=== PATIENT | female | born 1965 | race Caucasian/White ===

== ENCOUNTER 2023-01-04 23:41 | Observation (INO) | payer OTHER, SELFPAY ==
[2023-01-04 23:45] VITALS: BP 107/62; PULSE 60; RESP 12; TEMP 36.8; O2SAT 93; BMI 29.6
[2023-01-05] VITALS (36 sets, daily range): BP systolic 84–179; BP diastolic 57–86; PULSE 56–103; RESP 10–26; TEMP 36.6–37.3; O2SAT 88–98; BMI 34.8
--- NOTE | 2023-01-05 00:19 | ED_ITS ---
HPI - Fall General Chief Complaint: Fall Stated Complaint: FALL NECK PAIN Time Seen by Provider: 01/05/23 00:19 Source: patient Mode of arrival: ambulance History of Present Illness HPI Narrative: This 57 year old female history of bipolar disorder who was diagnosed with right breast cancer last week and has not seen oncology yet was brought to the emergency department by EMS after she had several falls. The patient states that she fell twice tonight and struck her head against the door frame. She complains of a generalized headache. She has neck pain and back pain. She states that the police were called to her apartment and told her that you don't look good she stated to them that she didn't feel good either and EMS was called. She denies any chest pain. She has shortness of breath and is notably hypoxic upon arrival. She denies that she smokes. She does not have COPD. She denies that she drinks. She states that her abdomen feels swollen. She has not had a fever. She denies any suicidal or homicidal ideation. Related Data Home Medications Medication Instructions Recorded Confirmed alprazolam 0.25 mg tablet 0.25 mg PO QID PRN anxiety 01/05/23 01/05/23 atorvastatin 20 mg tablet 20 mg PO DAILY 01/05/23 01/05/23 blood sugar diagnostic (Oneuch 01/05/23 01/05/23 Ultra Test strips) celecoxib 200 mg capsule 200 mg PO DAILY 01/05/23 01/05/23 citalopram 10 mg tablet 10 mg PO DAILY 01/05/23 01/05/23 cyanocobalamin (vitamin B-12) 1,000 mcg PO DAILY 01/05/23 01/05/23 1,000 mcg tablet diclofenac sodium 1 % topical gel 2 g topical BID 01/05/23 01/05/23 dulaglutide 4.5 mg/0.5 mL 4.5 mg subcut .tuesday01/05/23 01/05/23 subcutaneous pen injector (Trulicsmith) duloxetine 40 mg capsule,delayed 40 mg PO BID 01/05/23 01/05/23 release empagliflozin 25 mg tablet 25 mg PO DAILY 01/05/23 01/05/23 (Jardiance) flash glucose sensor (FreeStyle 01/05/23 01/05/23 Nanette 2 Sensor kit) gabapentin 600 mg tablet 600 mg PO TID 01/05/23 01/05/23 hydroxyzine pamoate 50 mg capsule 50 mg PO TID PRN anxiety 01/05/23 01/05/23 insulin glargine 100 unit/mL 32 unit subcut QPM 01/05/23 01/05/23 subcutaneous solution (Lantus U-100 Insulin) lamotrigine 100 mg tablet 100 mg PO DAILY 01/05/23 01/05/23 loratadine 10 mg tablet 10 mg PO DAILY 01/05/23 01/05/23 meclizine 25 mg tablet 25 mg PO Q8H PRN dizziness or 01/05/23 01/05/23 vertigo metformin 500 mg tablet,extended 1,000 mg PO BID 01/05/23 01/05/23 release 24 hr metoclopramide HCl 5 mg tablet 5 mg PO BIDWM 01/05/23 01/05/23 midodrine 10 mg tablet 10 mg PO TID 01/05/23 01/05/23 ondansetron 4 mg disintegrating 4 mg PO Q8H PRN nausea and vomiting 01/05/23 01/05/23 tablet pantoprazole 40 mg tablet,delayed 40 mg PO BID 01/05/23 01/05/23 release quetiapine 200 mg tablet 200 mg PO DAILY 01/05/23 01/05/23 quetiapine 25 mg tablet 25 mg PO .hs 01/05/23 01/05/23 trazodone 100 mg tablet 100 mg PO .HS PRN insomnia 01/05/23 01/05/23 Previous Rx's Medication Instructions Recorded levofloxacin 500 mg tablet 500 mg PO DAILY 10 days #10 tabs 01/06/23 prednisone 10 mg tablet 50 mg PO DAILY #47 tabs 01/06/23 Allergies Allergy/AdvReac Type Severity Reaction Status Date / Time lithium Allergy Verified 01/04/23 23:53 metformin Allergy Verified 01/04/23 23:53 ziprasidone [From Geodon] Allergy Verified 01/04/23 23:53 Review of Systems ROS Status of ROS 10 or more systems reviewed and unremarkable except as noted in history and below [facility] Medical History Surgical History (Updated 01/05/23 @ 07:33 by Cookie Ontiveros) Family History (Updated 01/05/23 @ 07:34 by Cookie Ontiveros) Father Family history of CHF (congestive heart failure) Family history of cancer Family history of hypertension Family history of myocardial infarction Family history of stroke Brother Family history of COPD (chronic obstructive pulmonary disease) Family history of hypertension Grandmother Family history of diabetes mellitus Grandfather Family history of diabetes mellitus Mother Family history of hypertension Social History (Updated 01/05/23 @ 07:36 by Cookie Ontiveros) Within the past year, how often did you have a drink containing alcohol: never Score interpretation: A score less than 3 is consistent with normal alcohol consumption. Smoking status: Never smoker Non-prescribed substance use: denies use Previous occupational history: Disability Highest level of school completed/degree received: high school graduate Are you now , , , , never or living with a partner: In a typical week, how many times do you talk on the telephone with family, friends, or neighbors: 3 or more times per week How often do you get together with friends or relatives: 3 or more times per week Little interest or pleasure in doing things: several days Feeling down, depressed, or hopeless: more than half the days Feel stressed/tense/nervous/anxious/difficulty sleeping: to some extent Do you think of yourself as: straight/heterosexual Gender Identity: female Exam Narrative Exam Narrative: Nurses note and vital signs reviewed and patient is Hypoxic, she has a normal blood pressure and pulse, she is afebrile General: Pale alert, nontoxic female, no respiratory distress, GCS 15 Skin: Warm, dry, no pallor noted. There is no rash noted. Head: Normocephalic, atraumatic, No appreciable tenderness, hematoma, abrasion, laceration, no raccoon sign or Kirby sign Eye: Mildy pale conjunctiva Ears, Nose, Mouth, and Throat: oral mucosa is moist. Nares patent. Mouth without vesicles. Cardiovascular: Regular Rate and Rhythm S1 S2, no murmurs rubs or gallops appreciated Respiratory: Patient is in no distress, no accessory muscle use, lungs are clear to auscultation, no wheezing, rales or rhonchi, She was notably hypoxic with pulse ox 88-89 percent on room air Back: non-tender, no Midline bony vertebral tenderness or step-off, no ecchymosis or abrasion noted GI: Normal bowel sounds, Softly distended, no rebound guarding rigidity appr eciated Musculoskeletal: The patient has no evidence of calf tenderness, no pitting edema, symmetrical pulses noted bilaterally Neurological: A&O x4, normal speech Psychiatric: Cooperative Constitutional Vital Signs, click to edit/add: Last Vital Signs Temp 98.2 F 01/06/23 05:57 Pulse 112 H 01/06/23 05:57 Resp 20 01/06/23 05:57 BP 127/66 H 01/06/23 05:57 Pulse Ox 90 L 01/06/23 11:15 O2 Del Method Room Air 01/06/23 11:15 O2 Flow Rate 2 01/05/23 14:37 Course Course Hospital Course: Patient presented to the emergency room with increasing cough, Respiratory distress, tachycardia, hypotension, acute hypoxic respiratory failure, respiratory acidosis with elevated CO2, acute kidney injury, positive lactate secondary to multifocal pneumonia and sepsis with multisystem organ dysfunction- lung and kidneys-sepsis criteria with tachycardia, respiratory distress with a known source of infection and positive lactate.??Patient was treated aggressively with IV antibiotics and aerosol treatments. She was no longer hypoxic the following day. He was able to ambulate well although physical therapy did recommend home health for physical therapy. She does not meet criteria for rehabilitation. With the hypoxia improved in the rapid fashion, patient will be discharged home in improving condition. Medications see list. Follow-up with her PCP within the next week. Vital Signs Vital signs: Vital Signs Temperature 98.2 F 01/04/23 23:45 Pulse Rate 60 01/04/23 23:45 Respiratory Rate 12 01/04/23 23:45 Blood Pressure 107/62 01/04/23 23:45 Pulse Oximetry 93 L 01/04/23 23:45 Oxygen Delivery Method Room Air 01/04/23 23:45 Temperature 98.2 F 01/06/23 05:57 Pulse Rate 112 H 01/06/23 05:57 Respiratory Rate 20 01/06/23 05:57 Blood Pressure 127/66 H 01/06/23 05:57 Pulse Oximetry 90 L 01/06/23 11:15 Oxygen Delivery Method Room Air 01/06/23 11:15 Oxygen Delivery Flow Rate 2 01/05/23 14:37 MDM - Fall MDM Narrative Medical decision making narrative: This 57-year-old female with a history of diabetes, bipolar disorder obesity who is a nonsmoker but was diagnosed with right breast cancer last week and is scheduled to see oncology in the near future is brought to the emergency department by EMS. The patient had several falls while at home earlier today. She states she struck her head twice on a door frame. She presents complaining of a generalized headache, neck pain and shortness of breath. She was notably hypoxic upon arrival. She denies that she has a history of chronic obstructive pulmonary disease or any lung disease. She states that she figured she was having trouble breathing due to the breast cancer. An EKG done upon arrival was A sinus rhythm with An incomplete right bundle-branch block and nonspecific changes. An IV was placed and she was medicated with Tylenol, Zofran and IV fluids. Tea and labs were ordered and she was sent for CT scanning of the head and neck. The CT scans of the head and neck were negative for acute findings. Routine labs are reviewed. She does have an elevated lactic acid at 2.7. She has a normal white count at 6, hemoglobin is normal at 11.7. She has elevated glucose at 356. Potassium is low at 3. BUS is normal at 6 and creatinine is mildly elevated at 1.27. Troponin was normal at 4.9. Her urine is negative for infection. She was placed on supplemental oxygen due to her pulse ox being in the high 80s. She responds appropriately to the supplemental oxygen. I did order a blood gas and she was taken off of the oxygen briefly. Her pH was 7.[address]. [address] scan of the chest shows Cardiomegaly with a trace pericardial effusion with diminished lung volumes with a background mosaic attenuation pattern and mild atelectatic changes. No discrete pulmonary mass or nodule is noted, no overt pneumonia was noted. There was no notable PE. It did show mild enlargement of the liver and spleen. CT scan of the pelvis was unremarkable with findings suggestive of constipation. It also showed some retroperitoneal varices above the level of the aortic bifurcation emanating off of the distal IVC. She was given 20 mEq of supplemental potassium for the hypokalemia. She was placed back onto the oxygen as her pulse ox into the 80s without supplemental oxygen. Her lactic acid was repeated while she was receiving IV fluids and went from 2.7-2.9. There is no clear source of the lactic acidosis however her glucose is 356. She was treated with a dose of IV Rocephin and 125 mg of IV Solu-Medrol. On reevaluation she stated that she needed chicken broth and something for heartburn. She was given a gastrointestinal cocktail with clinical improvement. She will be admitted for further evaluation and treatment. The case was discussed with Dr. Wills and she is accepted for admission to [facility]. Lab Data Labs: Lab Results 01/05/23 01/05/23 01/05/23 Range/Units 00:56 05:00 05:16 WBC 6.0 (4.0-11.0) 10^3/uL RBC 4.14 L (4.20-5.40) 10^6/uL Hgb 11.7 L (12.0-16.0) g/dL Hct 35.1 L (36.0-48.0) % MCV 84.8 (81.0-99.0) fL MCH 28.3 (26.7-34.0) pg MCHC 33.3 (29.9-35.2) g/dL RDW 14.0 (11.0-15.0) % Plt Count 274 (150-450) 10^3/uL MPV 9.3 L (9.5-13.5) fL Neut % (Auto) 54.3 (43.0-75.0) % Lymph % (Auto) 33.8 (20.5-60.0) % [place] % (Auto) 8.6 (1.7-12.0) % Eos % (Auto) 2.3 (0.9-7.0) % Baso % (Auto) 0.5 (0.2-2.0) % Neut # (Auto) 3.3 (1.4-6.5) 10^3/uL Lymph # (Auto) 2.0 (1.2-3.8) 10^3/uL [place] # (Auto) 0.5 (0.3-0.8) 10^3/uL Eos # (Auto) 0.1 (0.0-0.7) 10^3/uL Baso # (Auto) 0.0 (0.0-0.1) 10^3/uL Abs Immat Gran (auto) 0.03 (0.00-0.03) 10^3/uL Imm/Tot Granulo (auto) 0.5 (0.0-0.5) % Puncture Site Rr ABG pH 7.305 L (7.350-7.450) ABG pCO2 50.7 H* (35.0-45.0) mmHg ABG pO2 87.6 (80.0-100.0) mmHg ABG HCO3 25.2 (22.0-26.0) mmol/L ABG O2 Saturation 96.6 % ABG Base Excess -1.1 (-2.0-2.0) mmol/L Darius Test Positive (POSITIVE) O2 Liters/Min 2.5 Sodium 139 (136-145) mmol/L Potassium 3.0 L (3.5-5.1) mmol/L Chloride 101 (98-107) mmol/L Carbon Dioxide 27.7 (21.0-32.0) mmol/L Anion Gap 13.3 BUN 6.0 L (7.0-18.0) mg/dL Creatinine 1.27 H (0.55-1.02) mg/dL Est GFR ( Amer) 53 L (>=60) Est GFR (Non-Af Amer) 44 L (>=60) BUN/Creatinine Ratio 4.7 Glucose 356 H (74-106) mg/dL Lactate 2.7 H* 2.9 H* (0.4-2.0) mmol/L Calcium 8.4 L (8.5-10.1) mg/dL Total Bilirubin 0.4 (0.2-1.0) mg/dL AST 12 L (15-37) U/L ALT 22 (14-59) U/L Alkaline Phosphatase 109 (46-116) U/L Troponin I High Sens 4.1 4.9 (4.0-51.3) pg/mL NT-Pro-B Natriuret Pep 139.0 (<=900.0) pg/mL Total Protein 6.2 L (6.4-8.2) g/dL Albumin 3.1 L (3.4-5.0) g/dL Globulin 3.1 g/dL Albumin/Globulin Ratio 1.0 Lipase 43.0 L (73.0-393.0) U/L Urine Color (YELLOW) Urine Clarity (CLEAR) Urine pH (5.0-9.0) Ur Specific [place] (1.005-1.025) Urine Protein (NEG/TRACE) mg/dL Urine Glucose (UA) (NEGATIVE) mg/dL Urine Ketones (NEGATIVE) mg/dL Urine Occult Blood (NEGATIVE) Urine Nitrite (NEGATIVE) Urine Bilirubin (NEGATIVE) Urine Urobilinogen (0.2-1.0) EU/dL Ur Leukocyte Esterase (NEGATIVE) Urine RBC (0-2) #/HPF Urine WBC (NONE SEEN) #/HPF Ur Squamous Epith Cells (NONE/RARE) #/LPF Urine Crystals (None Seen) #/HPF Urine Bacteria (NONE SEEN) #/HPF Urine Casts (NONE SEEN) #/LPF Urine Mucus (NONE SEEN) Ur Culture Indicated? Blood Type A Positive Antibody Screen Negative 01/05/23 Range/Units 05:30 WBC (4.0-11.0) 10^3/uL RBC (4.20-5.40) 10^6/uL Hgb (12.0-16.0) g/dL Hct (36.0-48.0) % MCV (81.0-99.0) fL MCH (26.7-34.0) pg MCHC (29.9-35.2) g/dL RDW (11.0-15.0) % Plt Count (150-450) 10^3/uL MPV (9.5-13.5) fL Neut % (Auto) (43.0-75.0) % Lymph % (Auto) (20.5-60.0) % [place] % (Auto) (1.7-12.0) % Eos % (Auto) (0.9-7.0) % Baso % (Auto) (0.2-2.0) % Neut # (Auto) (1.4-6.5) 10^3/uL Lymph # (Auto) (1.2-3.8) 10^3/uL [place] # (Auto) (0.3-0.8) 10^3/uL Eos # (Auto) (0.0-0.7) 10^3/uL Baso # (Auto) (0.0-0.1) 10^3/uL Abs Immat Gran (auto) (0.00-0.03) 10^3/uL Imm/Tot Granulo (auto) (0.0-0.5) % Puncture Site ABG pH (7.350-7.450) ABG pCO2 (35.0-45.0) mmHg ABG pO2 (80.0-100.0) mmHg ABG HCO3 (22.0-26.0) mmol/L ABG O2 Saturation % ABG Base Excess (-2.0-2.0) mmol/L Darius Test (POSITIVE) O2 Liters/Min Sodium (136-145) mmol/L Potassium (3.5-5.1) mmol/L Chloride (98-107) mmol/L Carbon Dioxide (21.0-32.0) mmol/L Anion Gap BUN (7.0-18.0) mg/dL Creatinine (0.55-1.02) mg/dL Est GFR ( Amer) (>=60) Est GFR (Non-Af Amer) (>=60) BUN/Creatinine Ratio Glucose (74-106) mg/dL Lactate (0.4-2.0) mmol/L Calcium (8.5-10.1) mg/dL Total Bilirubin (0.2-1.0) mg/dL AST (15-37) U/L ALT (14-59) U/L Alkaline Phosphatase (46-116) U/L Troponin I High Sens (4.0-51.3) pg/mL NT-Pro-B Natriuret Pep (<=900.0) pg/mL Total Protein (6.4-8.2) g/dL Albumin (3.4-5.0) g/dL Globulin g/dL Albumin/Globulin Ratio Lipase (73.0-393.0) U/L Urine Color Lt. yellow (YELLOW) Urine Clarity Clear (CLEAR) Urine pH 6.5 (5.0-9.0) Ur Specific [place] <=1.005 A (1.005-1.025) Urine Protein Negative (NEG/TRACE) mg/dL Urine Glucose (UA) >=1000 A (NEGATIVE) mg/dL Urine Ketones Negative (NEGATIVE) mg/dL Urine Occult Blood Negative (NEGATIVE) Urine Nitrite Negative (NEGATIVE) Urine Bilirubin Negative (NEGATIVE) Urine Urobilinogen 0.2 (0.2-1.0) EU/dL Ur Leukocyte Esterase Negative (NEGATIVE) Urine RBC None seen (0-2) #/HPF Urine WBC None seen (NONE SEEN) #/HPF Ur Squamous Epith Cells Rare (NONE/RARE) #/LPF Urine Crystals None seen (None Seen) #/HPF Urine Bacteria None seen (NONE SEEN) #/HPF Urine Casts None seen (NONE SEEN) #/LPF Urine Mucus None seen (NONE SEEN) Ur Culture Indicated? No Blood Type Antibody Screen ECG Data Attestation: I personally reviewed and interpreted this ECG as follows: (Sinus rhythm at 56 bpm, incomplete right bundle branch block, Q wave noted in lead 3, left axis deviation, no acute ST segment elevation or T-wave inversion) Critical Care Time Critical Care Time Critical Care Time: Yes (40) Total Critical Care Time: 40 Attestation: . Discharge Plan Discharge Chief Complaint: Fall Clinical Impression: Hyperglycemia due to diabetes mellitus, Atypical pneumonia, Fall from standing, Closed head injury, Hypoxia, Acute hypokalemia, Acidosis, lactic Patient Disposition: Admitted as Observation Time of Disposition Decision: 06:31 Condition: Fair Discharge Date/Time: 01/05/23 07:13
--- NOTE | 2023-01-05 00:40 | CT_ITS ---
The [address] [address] Patient Name: KATHERIN WEBB MRN: [id number] date: 1965 Sex: F Assigned Patient Location: ED.MAIN Current Patient Location: ER Accession/Order Number: [id number] Exam Date: 01/05/2023 01:00 Report Date: 01/05/2023 01:29 At the request of: JESS HAMILTON Procedure: CT head/brain wo con EXAM: CT head/brain wo con HISTORY: head injury , fall. COMPARISON: 05/02/2022. TECHNIQUE: Unenhanced transaxial tomographic sections were obtained from the vertex through the posterior fossa. FINDINGS: No midline shift, mass effect or intracranial hemorrhage. The mastoid air cells and visualized paranasal sinuses are clear. CT/CT head/brain wo con IMPRESSION: Unremarkable unenhanced head CT. Electronically authenticated by: KAYLA CLEVELAND Date: 01/05/2023 01:29
--- NOTE | 2023-01-05 00:41 | CT_ITS ---
The [address] [address] Patient Name: KATHERIN WEBB MRN: [id number] date: 1965 Sex: F Assigned Patient Location: ED.MAIN Current Patient Location: Accession/Order Number: [id number] Exam Date: 01/05/2023 01:00 Report Date: 01/05/2023 01:30 At the request of: JESS HAMILTON Procedure: CT cervical spine wo con EXAM: CT cervical spine wo con HISTORY: fall, neck pain COMPARISON: None. TECHNIQUE: Axial CT images of the cervical spine were obtained without intravenous contrast administration. Reformatted images in coronal and sagittal planes were then acquired using the axial source data. Automated dose lowering techniques and/or adjustment according to patient size were utilized for this examination. FINDINGS: There is straightening of the normal cervical lordotic curvature. Vertebral body heights are preserved. The dens and atlantodens interval is intact. The ring of C1 is intact. The odontoid process is intact. No acute fractures are visualized. Posterior elements are intact. The prevertebral soft tissues appear unremarkable. Trace grade 1 degenerative anterolisthesis at C2-C3. Severe disc space narrowing at C6-C7 and mild at C5-C6. No CT evidence to suggest high-grade central canal narrowing within the cervical spine. Osteophyte complex at the C6-C7 level contributes to mild to moderate central canal narrowing. Mild to moderate left neuroforaminal narrowing at C6-C7 secondary to uncovertebral spurring. No evidence for high-grade neuroforaminal narrowing within the cervical spine. Mild patchy groundglass opacities noted within the bilateral upper lung avila. CT/CT cervical spine wo con IMPRESSION: 1. Degenerative changes of the cervical spine without evidence for an acute osseous abnormality. 2. Mild patchy groundglass opacities visualized within the bilateral upper lung avila which may be secondary to atypical pneumonia versus other etiologies. Electronically authenticated by: AYAH SIM Date: 01/05/2023 01:30
--- NOTE | 2023-01-05 00:42 | ECG_ITS ---
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
[2023-01-05 01:05] LABS: Basophils Percent Auto 0.5 % (0.2-2.0); Eosinophils Absolute Auto 0.1 10^3/uL (0.0-0.7); Eosinophils Percent Auto 2.3 % (0.9-7.0); Hematocrit 35.1 % (36.0-48.0); Hemoglobin 11.7 g/dL (12.0-16.0); Immature Granulocytes Abs Auto 0.03 10^3/uL (0.00-0.03); Immature Granulocytes Pct Auto 0.5 % (0.0-0.5); Lymphocytes Percent Auto 33.8 % (20.5-60.0); Mean Corpuscular HGB Conc 33.3 g/dL (29.9-35.2); Mean Corpuscular Hemoglobin 28.3 pg (26.7-34.0); Mean Corpuscular Volume 84.8 fL (81.0-99.0); Mean Platelet Volume 9.3 fL (9.5-13.5); Monocytes Absolute Auto 0.5 10^3/uL (0.3-0.8); Monocytes Percent Auto 8.6 % (1.7-12.0); Neutrophils Absolute Auto 3.3 10^3/uL (1.4-6.5); Neutrophils Percent Auto 54.3 % (43.0-75.0); Platelet Count 274 10^3/uL (150-450); Red Blood Count 4.14 10^6/uL (4.20-5.40)
[2023-01-05 01:21] LABS: Alanine Aminotransferase 22 U/L (14-59); Albumin Level 3.1 g/dL (3.4-5.0); Alkaline Phosphatase 109 U/L (46-116); Anion Gap 13.3; Aspartate Amino Transferase 12 U/L (15-37); BUN Creatinine Ratio 4.7; Bilirubin Total 0.4 mg/dL (0.2-1.0); Calcium 8.4 mg/dL (8.5-10.1); Carbon Dioxide 27.7 mmol/L (21.0-32.0); Chloride 101 mmol/L (98-107); Estimated GFR (African America 53 (>=60); Estimated GFR (Non-African Ame 44 (>=60); Globulin 3.1 g/dL; Glucose 356 mg/dL (74-106); Sodium 139 mmol/L (136-145); Total Protein 6.2 g/dL (6.4-8.2)
[2023-01-05] MEDS: 0.9 % SODIUM CHLORIDE 1,000 ML 125 ML IV (01:21)
[2023-01-05 01:27] LABS: Troponin I High Sensitivity 4.1 pg/mL (4.0-51.3)
[2023-01-05 01:28] LABS: Lactate/Lactic Acid 2.7 mmol/L (0.4-2.0)
[2023-01-05] MEDS: ACETAMINOPHEN 325 MG TABLET 650 MG PO (01:31)
--- NOTE | 2023-01-05 01:53 | CT_ITS ---
The [address] [address] Patient Name: KATHERIN WEBB MRN: [id number] date: 1965 Sex: F Assigned Patient Location: ER Current Patient Location: Accession/Order Number: [id number] Exam Date: 01/05/2023 02:30 Report Date: 01/05/2023 05:27 At the request of: JESS MARKER Procedure: CT chest w con EXAM: CT chest w con, CT abdomen pelvis w con 01/05/2023. HISTORY: hypoxia, hx breast cancer COMPARISON: None. TECHNIQUE: 3 mm sections were obtained from the thoracic inlet through the pubic symphysis following administration of intravenous contrast. Coronal and sagittal reconstructed images were obtained. FINDINGS: CT CHEST: Patient appears obese. Mediastinal lipomatosis is identified. Breasts are partially excluded from the [id number]. Heart size is moderately enlarged. No significant enlarged adenopathy. Trace pericardial effusion noted. Lung volumes are diminished with background mosaic attenuation pattern and mild bibasilar/supine atelectatic changes noted. No discrete pulmonary mass or nodule. No overt pneumonia. CT ABDOMEN: Gallbladder is surgically absent. The liver is enlarged with right hepatic lobe measuring 24.5 cm superior to inferior. The spleen measures 12.4 cm. Liver, spleen, adrenals and kidneys demonstrate no acute abnormality. Mild/moderate background global atrophic changes of the pancreas are noted. CT PELVIS: Uterus is surgically absent. Ovaries are age-appropriate. Urinary bladder appears unremarkable. Significant retention of stool within the large bowel suggestive of constipation. Negative for appendicitis or diverticulitis. Retroperitoneal varices just above the level of the aortic bifurcation emanating off the distal IVC. The distal IVC and intrapelvic veins are not well opacified. Degenerative changes of the spine overall are mild in severity. No acute or suspicious osseous lesions are noted. CT/CT chest w con IMPRESSION: 1. Moderate to severe cardiomegaly with small pericardial effusion. 2. Negative for aortic aneurysm, aortic dissection. No convincing evidence of an acute pulmonary embolus to the proximal segmental level. 3. Mild hypoventilation. No acute cardiopulmonary process otherwise identified. 4. Cholecystectomy. Hepatomegaly. Constipation. Hysterectomy. Tiny umbilical hernia contains fat without bowel. 5. No acute intra-abdominal or pelvic process otherwise suspected. Electronically authenticated by: JARVIS GARSIA Date: 01/05/2023 05:27
--- NOTE | 2023-01-05 01:53 | CT_ITS ---
The [address] [address] Patient Name: KATHERIN WEBB MRN: [id number] date: 1965 Sex: F Assigned Patient Location: ER Current Patient Location: Accession/Order Number: [id number] Exam Date: 01/05/2023 02:30 Report Date: 01/05/2023 05:27 At the request of: JESS MARKER Procedure: CT abdomen pelvis w con EXAM: CT chest w con, CT abdomen pelvis w con 01/05/2023. HISTORY: hypoxia, hx breast cancer COMPARISON: None. TECHNIQUE: 3 mm sections were obtained from the thoracic inlet through the pubic symphysis following administration of intravenous contrast. Coronal and sagittal reconstructed images were obtained. FINDINGS: CT CHEST: Patient appears obese. Mediastinal lipomatosis is identified. Breasts are partially excluded from the [id number]. Heart size is moderately enlarged. No significant enlarged adenopathy. Trace pericardial effusion noted. Lung volumes are diminished with background mosaic attenuation pattern and mild bibasilar/supine atelectatic changes noted. No discrete pulmonary mass or nodule. No overt pneumonia. CT ABDOMEN: Gallbladder is surgically absent. The liver is enlarged with right hepatic lobe measuring 24.5 cm superior to inferior. The spleen measures 12.4 cm. Liver, spleen, adrenals and kidneys demonstrate no acute abnormality. Mild/moderate background global atrophic changes of the pancreas are noted. CT PELVIS: Uterus is surgically absent. Ovaries are age-appropriate. Urinary bladder appears unremarkable. Significant retention of stool within the large bowel suggestive of constipation. Negative for appendicitis or diverticulitis. Retroperitoneal varices just above the level of the aortic bifurcation emanating off the distal IVC. The distal IVC and intrapelvic veins are not well opacified. Degenerative changes of the spine overall are mild in severity. No acute or suspicious osseous lesions are noted. CT/CT abdomen pelvis w con IMPRESSION: 1. Moderate to severe cardiomegaly with small pericardial effusion. 2. Negative for aortic aneurysm, aortic dissection. No convincing evidence of an acute pulmonary embolus to the proximal segmental level. 3. Mild hypoventilation. No acute cardiopulmonary process otherwise identified. 4. Cholecystectomy. Hepatomegaly. Constipation. Hysterectomy. Tiny umbilical hernia contains fat without bowel. 5. No acute intra-abdominal or pelvic process otherwise suspected. Electronically authenticated by: JARVIS GARSIA Date: 01/05/2023 05:27
[2023-01-05] MEDS: POTASSIUM CHLORIDE 10 MEQ ER TABLET 20 MEQ PO ×3 (02:50→21:08)
--- NOTE | 2023-01-05 03:15 | PC.NURSE ---
Pt now staying >95% on 3L nasal canula Pt does not feel short of breath Pt states she is just in pain at this time and feels uncomfortable and tired Pt aware of plan of care and denies needs Will continue to monitor
[2023-01-05 05:10] LABS: pH ABG 7.305 (7.350-7.450)
[2023-01-05 05:11] LABS: ABG PCO2 50.7 mmHg (35.0-45.0); Allen Test POSITIVE (POSITIVE); Base Excess ABG -1.1 mmol/L (-2.0-2.0); HCO3 ABG 25.2 mmol/L (22.0-26.0); Liters per Minute 2.5; O2 Mode NC; Oxygen Saturation ABG 96.6 %; PO2 ABG 87.6 mmHg (80.0-100.0)
[2023-01-05 05:12] LABS: Puncture Site RR
[2023-01-05 05:38] LABS: Troponin I High Sensitivity 4.9 pg/mL (4.0-51.3)
[2023-01-05 05:48] LABS: Lactate/Lactic Acid 2.9 mmol/L (0.4-2.0)
[2023-01-05 06:13] LABS: Bilirubin Urine NEGATIVE (NEGATIVE); Blood Urine NEGATIVE (NEGATIVE); Clarity Urine CLEAR (CLEAR); Color Urine LT. YELLOW (YELLOW); Glucose Urine UA >=1000 mg/dL (NEGATIVE); Ketones Urine NEGATIVE (NEGATIVE); Leukocyte Esterase Urine NEGATIVE (NEGATIVE); Nitrite Urine NEGATIVE (NEGATIVE); Protein Urine NEGATIVE (NEG/TRACE); Specific Gravity Urine <=1.005 (1.005-1.025); Urobilinogen Urine 0.2 EU/dL (0.2-1.0); pH Urine 6.5 (5.0-9.0)
[2023-01-05 06:18] LABS: Bacteria Urine NONE SEEN #/HPF (NONE SEEN); Mucus Urine NONE SEEN (NONE SEEN); RBC Urine NONE SEEN #/HPF (0-2); WBC Urine NONE SEEN #/HPF (NONE SEEN)
[2023-01-05 06:19] LABS: Cast Seen? NONE SEEN #/LPF (NONE SEEN); Crystals Seen? None Seen #/HPF (None Seen); Squamous Epithelial Cell Urine RARE #/LPF (NONE/RARE); Urine Culture Indicated NO
[2023-01-05] MEDS: METHYLPREDNISOLONE SOD SUCC PF 125 MG/2 ML VIAL IVP ×4 (06:21→23:19)
[2023-01-05] MEDS: CEFTRIAXONE 1,000 MG in 0.9 % SODIUM CHLORIDE 50 ML 100 MG IV (06:22)
[2023-01-05] MEDS: lidocaine HCL 15 ML, MAG HYDROX/ALUMINUM HYD/SIMETH 30 ML, HYOSCYAMINE SULFATE 0.25 MG PO (06:23)
--- NOTE | 2023-01-05 09:49 | CM.NOTE ---
Rounds made with Dr. Wills, no discharge today. PT will evaluate pt today and will follow for discharge needs.
--- NOTE | 2023-01-05 10:03 | P.HP_ITS ---
H&P: HPI History of Present Illness Chief complaint: FALL NECK PAIN Narrative: Patient with several falls of the last month or so. Please schemata to assist with the fall. Palpation to not appear well , recommended she go to the emergency room. Evaluation emergency room found a saturation in the mid 80s without being on supplemental oxygen. She was placed on 2 L and still had sats around 88%. Although that is currently improving. Chest x-ray suggested multifocal pneumonia. Patient was admitted for acute exacerbation of COPD and pneumonia Review of Systems ROS Constitutional Denies: fever, chills or change in weight Cardiovascular Denies: chest pain or palpitations Respiratory Reports: shortness of breath, cough and wheezing Gastrointestinal Reports: vomiting; Denies: abdominal pain PFSH [facility] Medical History Surgical History (Updated 01/05/23 @ 07:33 by Cookie Ontiveros) Family History (Updated 01/05/23 @ 07:34 by Cookie Ontiveros) Father Family history of CHF (congestive heart failure) Family history of cancer Family history of hypertension Family history of myocardial infarction Family history of stroke Brother Family history of COPD (chronic obstructive pulmonary disease) Family history of hypertension Grandmother Family history of diabetes mellitus Grandfather Family history of diabetes mellitus Mother Family history of hypertension Social History (Updated 01/05/23 @ 07:36 by Cookie Ontiveros) Within the past year, how often did you have a drink containing alcohol: never Score interpretation: A score less than 3 is consistent with normal alcohol consumption. Smoking status: Never smoker Non-prescribed substance use: denies use Previous occupational history: Disability Highest level of school completed/degree received: high school graduate Are you now , , , , never or living with a partner: In a typical week, how many times do you talk on the telephone with family, friends, or neighbors: 3 or more times per week How often do you get together with friends or relatives: 3 or more times per week Little interest or pleasure in doing things: several days Feeling down, depressed, or hopeless: more than half the days Feel stressed/tense/nervous/anxious/difficulty sleeping: to some extent Do you think of yourself as: straight/heterosexual Gender Identity: female Meds Home Medications and Allergies Home Medications Medication Instructions Recorded Confirmed Type alprazolam 0.25 mg tablet 0.25 mg PO QID PRN anxiety 01/05/23 01/05/23 History atorvastatin 20 mg tablet 20 mg PO DAILY 01/05/23 01/05/23 History blood sugar diagnostic (OneTouch 01/05/23 01/05/23 History Ultra Test strips) celecoxib 200 mg capsule 200 mg PO DAILY 01/05/23 01/05/23 History citalopram 10 mg tablet 10 mg PO DAILY 01/05/23 01/05/23 History cyanocobalamin (vitamin B-12) 1,000 mcg PO DAILY 01/05/23 01/05/23 History 1,000 mcg tablet diclofenac sodium 1 % topical gel 2 g topical BID 01/05/23 01/05/23 History dulaglutide 4.5 mg/0.5 mL 4.5 mg subcut .tuesday01/05/23 01/05/23 History subcutaneous pen injector (Trulicity) duloxetine 40 mg capsule,delayed 40 mg PO BID 01/05/23 01/05/23 History release empagliflozin 25 mg tablet 25 mg PO DAILY 01/05/23 01/05/23 History (Jardiance) flash glucose sensor (FreeStyle 01/05/23 01/05/23 History Nanette 2 Sensor kit) gabapentin 600 mg tablet 600 mg PO TID 01/05/23 01/05/23 History hydroxyzine pamoate 50 mg capsule 50 mg PO TID PRN anxiety 01/05/23 01/05/23 History insulin glargine 100 unit/mL 32 unit subcut QPM 01/05/23 01/05/23 History subcutaneous solution (Lantus U-100 Insulin) lamotrigine 100 mg tablet 100 mg PO DAILY 01/05/23 01/05/23 History loratadine 10 mg tablet 10 mg PO DAILY 01/05/23 01/05/23 History meclizine 25 mg tablet 25 mg PO Q8H PRN dizziness or 01/05/23 01/05/23 History vertigo metformin 500 mg tablet,extended 1,000 mg PO BID 01/05/23 01/05/23 History release 24 hr metoclopramide HCl 5 mg tablet 5 mg PO BIDWM 01/05/23 01/05/23 History midodrine 10 mg tablet 10 mg PO TID 01/05/23 01/05/23 History ondansetron 4 mg disintegrating 4 mg PO Q8H PRN nausea and vomiting 01/05/23 01/05/23 History tablet pantoprazole 40 mg tablet,delayed 40 mg PO BID 01/05/23 01/05/23 History release quetiapine 200 mg tablet 200 mg PO DAILY 01/05/23 01/05/23 History quetiapine 25 mg tablet 25 mg PO .hs 01/05/23 01/05/23 History trazodone 100 mg tablet 100 mg PO .HS PRN insomnia 01/05/23 01/05/23 History Allergies Allergy/AdvReac Type Severity Reaction Status Date / Time lithium Allergy Verified 01/04/23 23:53 metformin Allergy Verified 01/04/23 23:53 ziprasidone [From Geodon] Allergy Verified 01/04/23 23:53 Exam Constitutional Vital Signs, click to edit/add: Last Vital Signs Temp 97.8 F 01/05/23 07:57 Pulse 61 01/05/23 07:57 Resp 18 01/05/23 07:57 BP 96/62 01/05/23 07:57 Pulse Ox 95 01/05/23 07:57 O2 Del Method Nasal Cannula 01/05/23 07:57 O2 Flow Rate 2 01/05/23 07:57 Documenting provider has reviewed patient's vital signs: yes Common normals: apparent distress Exam limitations: no altered mental status General appearance: cooperative Respiratory Common normals: abnormal respiratory effort Effort & inspection: abnormal respiratory pattern and respiratory distress Auscultation: rhonchi Cardio Common normals: regular rhythm Rate: tachycardic GI Common normals: Normal to inspection, nondistended, normoactive bowel sounds present Extremity Common normals: normal to inspection and full ROM Results Labs Labs: Short CBC 01/05/23 Range/Units 00:56 WBC 6.0 (4.0-11.0) 10^3/uL Hgb 11.7 L (12.0-16.0) g/dL Hct 35.1 L (36.0-48.0) % Plt Count 274 (150-450) 10^3/uL BMP 01/05/23 00:56 Sodium 139 Potassium 3.0 L Chloride 101 Carbon Dioxide 27.7 BUN 6.0 L Creatinine 1.27 H Glucose 356 H Calcium 8.4 L Liver Function 01/05/23 Range/Units 00:56 Total Bilirubin 0.4 (0.2-1.0) mg/dL AST 12 L (15-37) U/L ALT 22 (14-59) U/L Alkaline Phosphatase 109 (46-116) U/L Albumin 3.1 L (3.4-5.0) g/dL Urine 01/05/23 Range/Units 05:30 Urine Color Lt. yellow (YELLOW) Urine Clarity Clear (CLEAR) Urine pH 6.5 (5.0-9.0) Ur Specific [place] <=1.005 A (1.005-1.025) Urine Protein Negative (NEG/TRACE) mg/dL Urine Glucose (UA) >=1000 A (NEGATIVE) mg/dL ABG ABG results: 01/05/23 05:00 ABG pH 7.305 L ABG pCO2 50.7 H* ABG pO2 87.6 ABG HCO3 25.2 ABG O2 Saturation 96.6 ABG Base Excess -1.1 Assessment and Plan Assessment and Plan (1) Acidosis, lactic: (2) Hyperglycemia due to diabetes mellitus: (3) Atypical pneumonia: (4) Fall from standing: (5) Hypoxia: Plan Respiratory distress, tachycardia, hypotension, acute hypoxic respiratory failure, respiratory acidosis with elevated CO2, acute kidney injury, positive lactate secondary to multifocal pneumonia and sepsis with multisystem organ dysfunction-lung and kidneys-sepsis criteria with tachycardia, respiratory distress with a known source of infection and positive lactate. IV antibiotics, aerosol treatments, supplemental oxygen, need to wean off of supplemental oxygen before discharge. History coronary artery disease-No chest pain. Cardiac markers are negative in ER. EKG is without significant change. Continue to monitor Lightheaded. Trying to ascertain if this is more vertigo which is what it sounds like, will add meclizine and have PT work with patient Hypokalemia-supplement Moderate protein calorie malnutrition-supplement Iron deficiency anemia-monitor daily
[2023-01-05] MEDS: KETOROLAC TROMETHAMINE 30 MG/ML VIAL IVP ×3 (10:43→21:12)
[2023-01-05] MEDS: ORPHENADRINE 60 MG/ 2 ML VIAL IV ×2 (10:43→21:07)
[2023-01-05] MEDS: MECLIZINE HCL 12.5 MG TABLET 25 MG PO ×3 (10:43→21:13)
[2023-01-05] MEDS: PANTOPRAZOLE SODIUM 40 MG VIAL IV (10:43)
[2023-01-05] MEDS: CETIRIZINE HCL 10 MG TABLET PO (10:44)
[2023-01-05] MEDS: LAMOTRIGINE 100 MG TABLET PO (10:44)
[2023-01-05] MEDS: CITALOPRAM HYDROBROMIDE 20 MG TABLET 10 MG PO (10:44)
[2023-01-05] MEDS: L. ACIDOPHILUS/L.BULGARICUS 1 PACKET GRAN.PACK PO ×2 (10:45→21:08)
[2023-01-05] MEDS: LACTATED RINGER'S SOLUTION 1,000 ML 100 ML IV ×2 (10:45→20:49)
[2023-01-05] MEDS: DICLOFENAC SODIUM 1% 100 GM GEL TOPICAL ×2 (10:46→21:08)
[2023-01-05] MEDS: LEVOFLOXACIN IN DEXTROSE 5 % 750 MG/150 ML IV.SOLN 100 MG IV (10:57)
[2023-01-05] MEDS: DULOXETINE HCL 20 MG CAPSULE.DR 40 MG PO ×2 (10:57→21:08)
[2023-01-05] MEDS: IPRATROPIUM/ALBUTEROL SULFATE 3 ML AMPUL.NEB IH ×3 (11:15→22:00)
[2023-01-05 11:26] LABS: Glucometer 338 mg/dL (74-106)
[2023-01-05] MEDS: INSULIN ASPART 300 UNIT/3 ML PEN SUBQ ×3 (11:38→21:10)
[2023-01-05] MEDS: MIDODRINE HCL 5 MG TABLET 10 MG PO ×2 (11:39→17:04)
[2023-01-05] MEDS: GABAPENTIN 300 MG CAPSULE 600 MG PO ×2 (14:36→21:08)
--- NOTE | 2023-01-05 15:24 | SWNOTE1 ---
SW met with pt to discuss dc needs. Pt does live at home by herself. Her family all lives out of town, she does not have any friends/family that can help. She did fall 2x at home, one outside and her neighbors did help her. Pt does have a walker at home, but she feels it is too big to use in the home. Pt lives in 1 story home. Pt and SW did talk about outpt therapy and home health. She is agreeable, does feel home health would be beneficial at this time. Possibly a nurse included due to her pneumonia. Pt does have carenimo, CHARLEY to figure out what [facility].
[2023-01-05 16:19] LABS: Glucometer 413 mg/dL (74-106)
[2023-01-05] MEDS: METOCLOPRAMIDE HCL 10 MG TABLET 5 MG PO (17:04)
[2023-01-05 20:35] LABS: Glucometer 417 mg/dL (74-106)
[2023-01-05] MEDS: TRAZODONE HCL 50 MG TABLET 100 MG PO (21:08)
[2023-01-05] MEDS: ALPRAZOLAM 0.25 MG TABLET PO (21:08)
[2023-01-05] MEDS: ATORVASTATIN CALCIUM 20 MG TABLET PO (21:08)
[2023-01-05] MEDS: QUETIAPINE FUMARATE 25 MG TABLET PO (21:08)
[2023-01-05] MEDS: TEMAZEPAM 15 MG CAPSULE PO (23:24)
[2023-01-05] MEDS: HYDROXYZINE PAMOATE 25 MG CAPSULE 50 MG PO (23:24)
[2023-01-06] MEDS: MECLIZINE HCL 12.5 MG TABLET 25 MG PO ×2 (04:19→10:20)
[2023-01-06] MEDS: KETOROLAC TROMETHAMINE 30 MG/ML VIAL IVP ×2 (04:19→10:20)
[2023-01-06 04:59] VITALS: PULSE 89; RESP 18; O2SAT 95
[2023-01-06] MEDS: IPRATROPIUM/ALBUTEROL SULFATE 3 ML AMPUL.NEB IH ×2 (04:59→11:12)
[2023-01-06] MEDS: MIDODRINE HCL 5 MG TABLET 10 MG PO (05:17)
[2023-01-06] MEDS: METHYLPREDNISOLONE SOD SUCC PF 125 MG/2 ML VIAL IVP (05:17)
[2023-01-06] MEDS: GABAPENTIN 300 MG CAPSULE 600 MG PO (05:17)
[2023-01-06] MEDS: CEFTRIAXONE 1,000 MG in 0.9 % SODIUM CHLORIDE 50 ML 100 MG IV (05:18)
[2023-01-06] MEDS: LACTATED RINGER'S SOLUTION 1,000 ML 100 ML IV (05:19)
[2023-01-06 05:23] LABS: Basophils Percent Auto 0.1 % (0.2-2.0); Hematocrit 35.4 % (36.0-48.0); Hemoglobin 11.6 g/dL (12.0-16.0); Immature Granulocytes Pct Auto 1.1 % (0.0-0.5); Lymphocytes Absolute Auto 0.9 10^3/uL (1.2-3.8); Lymphocytes Percent Auto 9.9 % (20.5-60.0); Mean Corpuscular HGB Conc 32.8 g/dL (29.9-35.2); Mean Corpuscular Hemoglobin 28.2 pg (26.7-34.0); Mean Corpuscular Volume 85.9 fL (81.0-99.0); Mean Platelet Volume 9.4 fL (9.5-13.5); Monocytes Absolute Auto 0.2 10^3/uL (0.3-0.8); Monocytes Percent Auto 1.9 % (1.7-12.0); Neutrophils Absolute Auto 8.3 10^3/uL (1.4-6.5); Platelet Count 264 10^3/uL (150-450); Red Blood Count 4.12 10^6/uL (4.20-5.40); Red Cell Distribution Width 14.6 % (11.0-15.0); White Blood Count 9.5 10^3/uL (4.0-11.0)
[2023-01-06 05:51] LABS: Alanine Aminotransferase 23 U/L (14-59); Albumin Globulin Ratio 0.9; Albumin Level 3.3 g/dL (3.4-5.0); Alkaline Phosphatase 101 U/L (46-116); Anion Gap 16.5; Aspartate Amino Transferase 9 U/L (15-37); BUN Creatinine Ratio 15.7; Bilirubin Total 0.2 mg/dL (0.2-1.0); Carbon Dioxide 23.2 mmol/L (21.0-32.0); Chloride 105 mmol/L (98-107); Estimated GFR (African America 53 (>=60); Estimated GFR (Non-African Ame 44 (>=60); Globulin 3.6 g/dL; Glucose 419 mg/dL (74-106); Potassium 4.7 mmol/L (3.5-5.1); Sodium 140 mmol/L (136-145); Total Protein 6.9 g/dL (6.4-8.2)
[2023-01-06 05:57] VITALS: BP 127/66; PULSE 112; RESP 20; TEMP 36.8; O2SAT 94
[2023-01-06 07:28] LABS: Glucometer 424 mg/dL (74-106)
[2023-01-06] MEDS: INSULIN ASPART 300 UNIT/3 ML PEN SUBQ (08:10)
[2023-01-06] MEDS: CITALOPRAM HYDROBROMIDE 20 MG TABLET 10 MG PO (08:11)
[2023-01-06] MEDS: LAMOTRIGINE 100 MG TABLET PO (08:11)
[2023-01-06] MEDS: POTASSIUM CHLORIDE 10 MEQ ER TABLET 20 MEQ PO (08:11)
[2023-01-06] MEDS: CETIRIZINE HCL 10 MG TABLET PO (08:11)
[2023-01-06] MEDS: PANTOPRAZOLE SODIUM 40 MG VIAL IV (08:11)
[2023-01-06] MEDS: METOCLOPRAMIDE HCL 10 MG TABLET 5 MG PO (08:11)
[2023-01-06] MEDS: L. ACIDOPHILUS/L.BULGARICUS 1 PACKET GRAN.PACK PO (08:11)
[2023-01-06] MEDS: DULOXETINE HCL 20 MG CAPSULE.DR 40 MG PO (08:11)
[2023-01-06] MEDS: ORPHENADRINE 60 MG/ 2 ML VIAL IV (08:11)
[2023-01-06] MEDS: DICLOFENAC SODIUM 1% 100 GM GEL TOPICAL (08:12)
--- NOTE | 2023-01-06 09:09 | CM.NOTE ---
Rounds made with linda Hsu for discharge to home today. Possible HH at discharge.
--- NOTE | 2023-01-06 09:18 | SWNOTE1 ---
CHARLEY had message from [facility] and they are not able to accept. CHARLEY sent referral to [facility].
--- NOTE | 2023-01-06 09:55 | P.DS_ITS ---
DS: Providers Provider Date of admission: 01/05/23 06:54 Primary care physician: Non-Staff Physician, Consults: 01/05/23 09:55 Occupational Therapy Eval and Treat Routine Physical Therapy Eval and Treat Routine DS: Diagnosis Discharge Diagnosis (1) Acidosis, lactic: (2) Hyperglycemia due to diabetes mellitus: (3) Atypical pneumonia: (4) Fall from standing: (5) Hypoxia: Plan Respiratory distress, tachycardia, hypotension, acute hypoxic respiratory failure, respiratory acidosis with elevated CO2, acute kidney injury, positive lactate secondary to multifocal pneumonia and sepsis with multisystem organ dysfunction-lung and kidneys-sepsis criteria with tachycardia, respiratory di stress with a known source of infection and positive lactate.?? History coronary artery disease-No chest pain.?? Lightheaded.? Hypokalemia Moderate protein calorie malnutrition Iron deficiency anemia DS: Summary Hospital Course Hospital Course: Patient presented to the emergency room with increasing cough, Respiratory distress, tachycardia, hypotension, acute hypoxic respiratory failure, respiratory acidosis with elevated CO2, acute kidney injury, positive lactate secondary to multifocal pneumonia and sepsis with multisystem organ dysfunction-lung and kidneys-sepsis criteria with tachycardia, respiratory distress with a known source of infection and positive lactate.??Patient was treated aggressively with IV antibiotics and aerosol treatments. She was no longer hypoxic the following day. He was able to ambulate well although physical therapy did recommend home health for physical therapy. She does not meet criteria for rehabilitation. With the hypoxia improved in the rapid fashion, patient will be discharged home in improving condition. Medications see list. Follow-up with her PCP within the next week. Time Spent with Patient Time attestation: Total time spent providing and/or coordinating discharge services: Exam Constitutional Vital Signs, click to edit/add: Last Vital Signs Temp 98.2 F 01/06/23 05:57 Pulse 112 H 01/06/23 05:57 Resp 20 01/06/23 05:57 BP 127/66 H 01/06/23 05:57 Pulse Ox 90 L 01/06/23 11:15 O2 Del Method Room Air 01/06/23 11:15 O2 Flow Rate 2 01/05/23 14:37 Documenting provider has reviewed patient's vital signs: yes Common normals: apparent distress Exam limitations: no altered mental status General appearance: cooperative Respiratory Common normals: abnormal respiratory effort Effort & inspection: abnormal respiratory pattern and respiratory distress Auscultation: rhonchi Cardio Common normals: regular rhythm Rate: tachycardic GI Common normals: Normal to inspection, nondistended, normoactive bowel sounds present Extremity Common normals: normal to inspection and full ROM DS: Data Data Completed and Pending Labs on day of discharge: Labs from last 24 hours 01/06/23 01/06/23 11:02 07:26 POC Glucose 346 H 424 H Discharge Plan Discharge Disposition: Home, Self-Care Condition: Fair Discharge Medications: New prednisone 10 mg tablet 50 mg PO DAILY Qty: 47 0RF Rx Instructions: 5/day for 3 days. 4/day for 3 days, 3/day for 3 days, 2/day for 3 days, 1/day for 3 days, 1/2 /day for 4 days levofloxacin 500 mg tablet 500 mg PO DAILY 10 Days Qty: 10 0RF Continued quetiapine 25 mg tablet 25 mg PO .hs celecoxib 200 mg capsule 200 mg PO DAILY atorvastatin 20 mg tablet 20 mg PO DAILY citalopram 10 mg tablet 10 mg PO DAILY cyanocobalamin (vitamin B-12) 1,000 mcg tablet 1,000 mcg PO DAILY hydroxyzine pamoate 50 mg capsule 50 mg PO TID PRN (Reason: anxiety) (DME) OneTouch Ultra Test Strip MISCELLANEOUS alprazolam 0.25 mg tablet 0.25 mg PO QID PRN (Reason: anxiety) metoclopramide HCl 5 mg tablet 5 mg PO BIDWM trazodone 100 mg tablet 100 mg PO .HS PRN (Reason: insomnia) meclizine 25 mg tablet 25 mg PO Q8H PRN (Reason: dizziness or vertigo) ondansetron 4 mg tablet,disintegrating 4 mg PO Q8H PRN (Reason: nausea and vomiting) metformin 500 mg tablet extended release 24 hr 1,000 mg PO BID lamotrigine 100 mg tablet 100 mg PO DAILY loratadine 10 mg tablet 10 mg PO DAILY diclofenac sodium 1 % gel 2 g TOPICAL BID duloxetine 40 mg capsule,delayed release(DR/EC) 40 mg PO BID (DME) FreeStyle Nanette 2 Sensor Kit MISCELLANEOUS Trulicity 4.5 mg/0.5 mL pen injector 4.5 mg SUBCUT .tuesday Jardiance 25 mg tablet 25 mg PO DAILY Rx Instructions: PER RETAIL FILL HX - LAST FILLED 12/15/22 gabapentin 600 mg tablet 600 mg PO TID Rx Instructions: PER RETAIL FILL HX - LAST FILLED 12/15/22 midodrine 10 mg tablet 10 mg PO TID Rx Instructions: do not give last dose of day after 6PM or within 4 hrs of bedtime PER RETAIL FILL HX - LAST FILLED 12/15/22 pantoprazole 40 mg tablet,delayed release (DR/EC) 40 mg PO BID Rx Instructions: PER RETAIL FILL HX - LAST FILLED 12/15/22 quetiapine 200 mg tablet 200 mg PO DAILY Rx Instructions: AT BEDTIME PER RETAIL FILL HX - 12/15/22 insulin glargine [Lantus U-100 Insulin] 100 unit/mL solution 32 unit subcut QPM Activity: resume usual activities as tolerated Diet: advance to your usual diet Patient Instructions: Prednisone (By mouth), Levofloxacin (By mouth), Fall Prevention (DC), Pneumonia (DC), Diabetic Hyperglycemia (DC) Manager Of Selection And Assessment/Linux Network Administrator Instructions: Discharge with [facility], phone number is [phone] Forms: Portal Instructions Follow Up Appointments: Follow up appt. with Dr. Quick on January 13 @ 1:00pm Office #: [phone] Discharge Date/Time: 01/06/23 11:32
--- NOTE | 2023-01-06 10:04 | P.DS_ITS ---
DS: Providers Provider Date of admission: 01/05/23 06:54 Primary care physician: Non-Staff Physician, Consults: 01/05/23 09:55 Occupational Therapy Eval and Treat Routine Physical Therapy Eval and Treat Routine DS: Diagnosis Discharge Diagnosis (1) Acidosis, lactic: (2) Hyperglycemia due to diabetes mellitus: (3) Atypical pneumonia: (4) Fall from standing: (5) Hypoxia: Plan Respiratory distress, tachycardia, hypotension, acute hypoxic respiratory failure, respiratory acidosis with elevated CO2, acute kidney injury, positive lactate secondary to multifocal pneumonia and sepsis with multisystem organ dysfunction-lung and kidneys-sepsis criteria with tachycardia, respiratory di stress with a known source of infection and positive lactate.? History coronary artery disease-No chest pain.? Lightheaded.? Hypokalemia Moderate protein calorie malnutrition Iron deficiency anemia DS: Summary Hospital Course Hospital Course: Patient who is a long-haul COVID-patient presented to the emergency room with Respiratory distress, tachycardia, hypotension, acute hypoxic respiratory failure, respiratory acidosis with elevated CO2, acute kidney injury, positive lactate secondary to multifocal pneumonia and sepsis with multisystem organ dysfunction-lung and kidneys-sepsis criteria with tachycardia, respiratory distress with a known source of infection and positive lactate.? Patient was treated with antibiotics and aerosol treatments. She was somewhat improved the following day but not significantly. Still with significant dyspnea and cough. She is maintain her current medications. Her baseline oxygen is 2 to 3 L to 8 L at rest 3 L with activity. For the first 2 days were unable to get her down to the 2 L at rest. She is feeling much improved with her breathing today however feels stable for discharge to home 3 L. She can follow-up with her PCP and pulmonology as an outpatient. Medications see list. See physicians in follow- up within the next week Time Spent with Patient Time attestation: Total time spent providing and/or coordinating discharge services: Exam Constitutional Vital Signs, click to edit/add: Last Vital Signs Temp 98.2 F 01/06/23 05:57 Pulse 112 H 01/06/23 05:57 Resp 20 01/06/23 05:57 BP 127/66 H 01/06/23 05:57 Pulse Ox 94 L 01/06/23 05:57 O2 Del Method Room Air 01/06/23 05:57 O2 Flow Rate 2 01/05/23 14:37 Documenting provider has reviewed patient's vital signs: yes Common normals: apparent distress Exam limitations: no altered mental status General appearance: cooperative Respiratory Common normals: abnormal respiratory effort Effort & inspection: abnormal respiratory pattern and respiratory distress Auscultation: rhonchi Cardio Common normals: regular rhythm Rate: tachycardic GI Common normals: Normal to inspection, nondistended, normoactive bowel sounds present Extremity Common normals: normal to inspection and full ROM DS: Data Data Completed and Pending Labs on day of discharge: Labs from last 24 hours 01/06/23 01/06/23 01/05/23 07:26 04:57 20:32 WBC 9.5 RBC 4.12 L Hgb 11.6 L Hct 35.4 L MCV 85.9 MCH 28.2 MCHC 32.8 RDW 14.6 Plt Count 264 MPV 9.4 L Neut % (Auto) 87.0 H Lymph % (Auto) 9.9 L [place] % (Auto) 1.9 Eos % (Auto) 0.0 L Baso % (Auto) 0.1 L Neut # (Auto) 8.3 H Lymph # (Auto) 0.9 L [place] # (Auto) 0.2 L Eos # (Auto) 0.0 Baso # (Auto) 0.0 Abs Immat Gran (auto) 0.10 H Imm/Tot Granulo (auto) 1.1 H Sodium 140 Potassium 4.7 Chloride 105 Carbon Dioxide 23.2 Anion Gap 16.5 BUN 20.0 H Creatinine 1.27 H Est GFR ( Amer) 53 L Est GFR (Non-Af Amer) 44 L BUN/Creatinine Ratio 15.7 Glucose 419 H Calcium 9.0 Total Bilirubin 0.2 AST 9 L ALT 23 Alkaline Phosphatase 101 Total Protein 6.9 Albumin 3.3 L Globulin 3.6 Albumin/Globulin Ratio 0.9 POC Glucose 424 H 417 H 01/05/23 01/05/23 16:18 11:25 WBC RBC Hgb Hct MCV MCH MCHC RDW Plt Count MPV Neut % (Auto) Lymph % (Auto) [place] % (Auto) Eos % (Auto) Baso % (Auto) Neut # (Auto) Lymph # (Auto) [place] # (Auto) Eos # (Auto) Baso # (Auto) Abs Immat Gran (auto) Imm/Tot Granulo (auto) Sodium Potassium Chloride Carbon Dioxide Anion Gap BUN Creatinine Est GFR ( Amer) Est GFR (Non-Af Amer) BUN/Creatinine Ratio Glucose Calcium Total Bilirubin AST ALT Alkaline Phosphatase Total Protein Albumin Globulin Albumin/Globulin Ratio POC Glucose 413 H 338 H Discharge Plan Discharge Disposition: Home, Self-Care Condition: Fair Discharge Medications: New prednisone 10 mg tablet 50 mg PO DAILY Qty: 47 0RF Rx Instructions: 5/day for 3 days. 4/day for 3 days, 3/day for 3 days, 2/day for 3 days, 1/day for 3 days, 1/2 /day for 4 days levofloxacin 500 mg tablet 500 mg PO DAILY 10 Days Qty: 10 0RF Continued quetiapine 25 mg tablet 25 mg PO .hs celecoxib 200 mg capsule 200 mg PO DAILY atorvastatin 20 mg tablet 20 mg PO DAILY citalopram 10 mg tablet 10 mg PO DAILY cyanocobalamin (vitamin B-12) 1,000 mcg tablet 1,000 mcg PO DAILY hydroxyzine pamoate 50 mg capsule 50 mg PO TID PRN (Reason: anxiety) (DME) OneTouch Ultra Test Strip MISCELLANEOUS alprazolam 0.25 mg tablet 0.25 mg PO QID PRN (Reason: anxiety) metoclopramide HCl 5 mg tablet 5 mg PO BIDWM trazodone 100 mg tablet 100 mg PO .HS PRN (Reason: insomnia) meclizine 25 mg tablet 25 mg PO Q8H PRN (Reason: dizziness or vertigo) ondansetron 4 mg tablet,disintegrating 4 mg PO Q8H PRN (Reason: nausea and vomiting) metformin 500 mg tablet extended release 24 hr 1,000 mg PO BID lamotrigine 100 mg tablet 100 mg PO DAILY loratadine 10 mg tablet 10 mg PO DAILY diclofenac sodium 1 % gel 2 g TOPICAL BID duloxetine 40 mg capsule,delayed release(DR/EC) 40 mg PO BID (DME) FreeStyle Nanette 2 Sensor Kit MISCELLANEOUS Trulicity 4.5 mg/0.5 mL pen injector 4.5 mg SUBCUT .tuesday Jardiance 25 mg tablet 25 mg PO DAILY Rx Instructions: PER RETAIL FILL HX - LAST FILLED 12/15/22 gabapentin 600 mg tablet 600 mg PO TID Rx Instructions: PER RETAIL FILL HX - LAST FILLED 12/15/22 midodrine 10 mg tablet 10 mg PO TID Rx Instructions: do not give last dose of day after 6PM or within 4 hrs of bedtime PER RETAIL FILL HX - LAST FILLED 12/15/22 pantoprazole 40 mg tablet,delayed release (DR/EC) 40 mg PO BID Rx Instructions: PER RETAIL FILL HX - LAST FILLED 12/15/22 quetiapine 200 mg tablet 200 mg PO DAILY Rx Instructions: AT BEDTIME PER RETAIL FILL HX - 12/15/22 insulin glargine [Lantus U-100 Insulin] 100 unit/mL solution 32 unit subcut QPM Activity: resume usual activities as tolerated Diet: advance to your usual diet Patient Instructions: Prednisone (By mouth), Levofloxacin (By mouth), Fall Prevention (DC), Pneumonia (DC), Diabetic Hyperglycemia (DC) Engraver Apprentice Decorative/Weft Straightener Instructions: Discharge with [facility], phone number is [phone] Forms: Portal Instructions Follow Up Appointments: Follow up appt. with Dr. Quick on January 13 @ 1:00pm Office #: [phone] Discharge Date/Time: 01/06/23 11:32
[2023-01-06] MEDS: CANAGLIFLOZIN 100 MG TABLET 300 MG PO (10:20)
[2023-01-06 11:04] LABS: Glucometer 346 mg/dL (74-106)
[2023-01-06 11:15] VITALS: O2SAT 90
--- NOTE | 2023-01-06 11:15 | REH.PTDLY ---
Physical Therapy Daily Note PT Daily Note/Assess Start: 01/06/23 11:12 Freq: Status: Active Protocol: Document 01/06/23 11:12 SINDHU (Rec: 01/06/23 11:15 SINDHU Desktop) Physical Therapy Daily Note/Assessment Time In 10:58 Time Out 11:13 Subjective Pt reports she gets to leave today, agreeable to seated exs . Therapeutic Exercise Minutes (minutes) 10 Therapeutic Exercise Units 1 Therapeutic Exercise Treatment Instructed in seated exs with legs elevated 10-15x ea including AP, heel slides, hip abd slides, SLR. Then performed LAQ, marching, and hip abd 10x ea for improved strength. Nursing enters room to give DC instructions as pt' s ride is coming in 20 mins. Total Therapy Minutes 10 Total Physical Therapy Units 1 Daily Note Summary Pt tolerated B LE seated exs with no complaints. Pt being DC in 20 mins per nursing so stopped rx so pt could get ready to leave. DC to home with IBETH
--- NOTE | 2023-01-07 10:27 | CM.DCFOLLOWU ---
Person spoke with: patient How are you feeling? well How is your pain? no pain Did you understand your discharge instructions? yes Do you have any questions about your discharge instructions? no Were you given any prescriptions at discharge? yes Were you able to get your prescriptions filled? patient filling them today Do you understand how to take your medications as ordered? yes Do you have any questions about your follow up appointment and do you plan to keep your follow up appointment? no questions and yes keeping, home health nurse coming in today to complete assessment. Is there anything else that you would like to discuss? no Questions/Comments/Concerns/Other:
== END 2023-01-06 11:32 | disposition home or self-care (01) ==
LOC: ER 01-05 06:34 → MS 01-05 06:54
PROVIDERS: Admitting Provider Family Medicine; Emergency Provider Emergency Medicine; Visit Provider Family Medicine
DX: A41.9 Sepsis, unspecified organism (principal); J18.9 Pneumonia, unspecified organism; J96.01 Acute respiratory failure with hypoxia; E87.29 Other acidosis; N17.9 Acute kidney failure, unspecified; I25.10 Atherosclerotic heart disease of native coronary artery without angina pectoris; R42 Dizziness and giddiness; E87.6 Hypokalemia; E44.0 Moderate protein-calorie malnutrition; D50.9 Iron deficiency anemia, unspecified; U09.9 Post COVID-19 condition, unspecified; Z99.81 Dependence on supplemental oxygen; E87.20 Acidosis, unspecified; E11.65 Type 2 diabetes mellitus with hyperglycemia; E66.9 Obesity, unspecified; F31.9 Bipolar disorder, unspecified; Z68.34 Body mass index [BMI] 34.0-34.9, adult; I45.10 Unspecified right bundle-branch block; C50.911 Malignant neoplasm of unspecified site of right female breast; Z79.85 Long-term (current) use of injectable non-insulin antidiabetic drugs; Z79.899 Other long term (current) drug therapy; Z79.84 Long term (current) use of oral hypoglycemic drugs; Z91.81 History of falling
CPT/HCPCS: 36415; 36600; 70450; 71260; 72125; 74177; 80053; 81001; 82805; 82948; 83605; 83690; 83880; 84484; 85025; 86850; 86900; 86901; 87070; 93005; 94640; 94667; 94668; 94761; 96361; 96365; 96366; 96367; 96375; 96376; 97110; 97162; 97165; 97535; 99285; G0328; G0378; J2930; Q9967

== ENCOUNTER 2023-05-11 21:14 | Observation (INO) | payer OTHER, SELFPAY ==
[2023-05-11] VITALS (20 sets, daily range): BP systolic 138–144; BP diastolic 90–95; PULSE 104–114; RESP 16–26; TEMP 38.2–38.4; O2SAT 93–95
--- NOTE | 2023-05-11 21:00 | ECG_ITS ---
The [facility] Test Date: 2023-05-11 Pat Name: KATHERIN WEBB Department: Room: - Gender: Female Plan Coordinator: : 1965 Requested By: 1030 Order Number: [id number] Reading MD: YOANA MAYERS Measurements Intervals [place] Rate: 110 P: 36 GA: 150 QRS: -58 QRSD: 92 T: 102 QT: 302 QTc: 367 Interpretive Statements 1120 Sinus tachycardia 2440 Incomplete right bundle branch block 3634 Inferior myocardial infarction, age undetermined 7200 Abnormal left axis deviation 8003 Consistent with pulmonary disease 9150 abnormal ECG Compared to ECG 01/05/2023 01:16:15 Myocardial infarct finding now present Sinus bradycardia no longer present Electronically Signed On 05-12-2023 6:59:22 EST by YOANA MAYERS
--- NOTE | 2023-05-11 21:24 | XR_ITS ---
The [address] [address] Patient Name: KATHERIN WEBB MRN: [id number] date: 1965 Sex: F Assigned Patient Location: ER Current Patient Location: ED.MAIN Accession/Order Number: [id number] Exam Date: 05/11/2023 21:35 Report Date: 05/11/2023 21:53 At the request of: BECKY KENNEDY Procedure: XR chest 1V EXAMINATION: XR chest 1V HISTORY: Cough and fever COMPARISON: Chest x-ray 05/02/2022 TECHNIQUE: Portable chest FINDINGS: The lung parenchyma is free of consolidation or infiltrate. No pneumothorax or pleural effusion. Left-sided central venous access port. The cardiac, mediastinal and hilar contours are normal. Surgical clips within the right axilla. The visualized osseous structures exhibit no gross abnormality. XR/XR chest 1V IMPRESSION: No acute cardiopulmonary abnormality. Electronically authenticated by: MYRANDA BOBO Date: 05/11/2023 21:53
--- NOTE | 2023-05-11 21:25 | ED.GENADUL1 ---
HPI - General Adult General Chief complaint: Dizziness Stated complaint: GENERAL WEAKNESS Time Seen by Provider: 05/11/23 21:19 Source: patient Mode of arrival: ambulance Limitations: no limitations History of Present Illness HPI narrative: 57-year-old female presents for nausea vomiting and cough. She's been coughing up some yellow phlegm and she was discovered to have fever at triage. She has a history of breast cancer and many months ago had mastectomy. She has a port in her left chest and had her 1st chemotherapy two weeks ago. She has not been feeling well for about two days and didn't realize she had a fever. Related Data Home Medications Medication Instructions Recorded Confirmed alprazolam 0.25 mg tablet 0.25 mg PO QID PRN anxiety 01/05/23 05/11/23 atorvastatin 20 mg tablet 20 mg PO DAILY 01/05/23 05/11/23 blood sugar diagnostic (Oneuch 01/05/23 01/05/23 Ultra Test strips) celecoxib 200 mg capsule 200 mg PO DAILY 01/05/23 05/11/23 citalopram 10 mg tablet 10 mg PO DAILY 01/05/23 05/11/23 cyanocobalamin (vitamin B-12) 1,000 mcg PO DAILY 01/05/23 05/11/23 1,000 mcg tablet duloxetine 40 mg capsule,delayed 40 mg PO BID 01/05/23 05/11/23 release empagliflozin 25 mg tablet 25 mg PO DAILY 01/05/23 05/11/23 (Jardiance) flash glucose sensor (FreeStyle 01/05/23 05/11/23 Nanette 2 Sensor kit) gabapentin 600 mg tablet 600 mg PO TID 01/05/23 05/11/23 hydroxyzine pamoate 50 mg capsule 50 mg PO TID PRN anxiety 01/05/23 05/11/23 insulin glargine 100 unit/mL 32 unit subcut QPM 01/05/23 05/11/23 subcutaneous solution (Lantus U-100 Insulin) lamotrigine 100 mg tablet 100 mg PO DAILY 01/05/23 05/11/23 loratadine 10 mg tablet 10 mg PO DAILY 01/05/23 05/11/23 meclizine 25 mg tablet 25 mg PO Q8H PRN dizziness or 01/05/23 05/11/23 vertigo metformin 500 mg tablet,extended 1,000 mg PO BID 01/05/23 05/11/23 release 24 hr metoclopramide HCl 5 mg tablet 5 mg PO BIDWM 01/05/23 05/11/23 midodrine 10 mg tablet 10 mg PO TID 01/05/23 05/11/23 pantoprazole 40 mg tablet,delayed 40 mg PO BID 01/05/23 05/11/23 release quetiapine 200 mg tablet 200 mg PO DAILY 01/05/23 05/11/23 quetiapine 25 mg tablet 25 mg PO .hs 01/05/23 05/11/23 trazodone 100 mg tablet 100 mg PO .HS PRN insomnia 01/05/23 05/11/23 duloxetine 60 mg capsule,delayed mg PO 05/11/23 release ondansetron HCl 8 mg tablet mg 05/11/23 oxycodone-acetaminophen 5 mg-325 tab 05/11/23 mg tablet Allergies Allergy/AdvReac Type Severity Reaction Status Date / Time lithium Allergy Verified 05/11/23 21:18 metformin Allergy Verified 05/11/23 21:18 ziprasidone [From Geodon] Allergy Verified 05/11/23 21:18 Review of Systems ROS Narrative A ten point review of systems is negative except as noted above. [facility] Medical History Surgical History (Updated 01/05/23 @ 07:33 by Cookie Ontiveros) H/O tubal ligation ?Z98.51 - Tubal ligation status (ICD-10) History of cholecystectomy ?Z90.49 - Acquired absence of other specified parts of digestive tract (ICD-10) Family History (Updated 01/05/23 @ 07:34 by Cookie Ontiveros) Father Family history of CHF (congestive heart failure) Family history of cancer Family history of hypertension Family history of myocardial infarction Family history of stroke Brother Family history of COPD (chronic obstructive pulmonary disease) Family history of hypertension Grandmother Family history of diabetes mellitus Grandfather Family history of diabetes mellitus Mother Family history of hypertension Social History (Updated 01/05/23 @ 07:36 by Cookie Ontiveros) Within the past year, how often did you have a drink containing alcohol: never Score interpretation: A score less than 3 is consistent with normal alcohol consumption. Smoking status: Never smoker Non-prescribed substance use: denies use Previous occupational history: Disability Highest level of school completed/degree received: high school graduate Are you now , , , , never or living with a partner: In a typical week, how many times do you talk on the telephone with family, friends, or neighbors: 3 or more times per week How often do you get together with friends or relatives: 3 or more times per week Little interest or pleasure in doing things: several days Feeling down, depressed, or hopeless: more than half the days Feel stressed/tense/nervous/anxious/difficulty sleeping: to some extent Do you think of yourself as: straight/heterosexual Gender Identity: female Exam Narrative Exam Narrative: Nurses note and vital signs reviewed and patient is not hypoxic. General: The patient appears well and in no apparent distress. Patient is resting comfortably on cart. Skin: Warm, dry, no pallor noted. There is no rash noted. right mastectomy surgical incision is well-healed, no erythema. Reports incision has no surrounding erythema Head: Normocephalic, atraumatic Eye: Normal conjunctiva, no drainage Ears, Nose, Mouth, and Throat: oral mucosa is moist. Nares patent. Mouth without vesicles. Cardiovascular: Regular Rate and Rhythm Respiratory: Patient is in no distress, no accessory muscle use, lungs are clear to auscultation, no wheezing, rales or rhonchi Back: non-tender GI: soft and nontender Musculoskeletal: The patient has no evidence of calf tenderness, no pitting edema, symmetrical pulses noted bilaterally Neurological: A&O, normal speech Psychiatric: Cooperative Constitutional Vital Signs, click to edit/add: Last Vital Signs Temp 100.8 F H 05/11/23 22:51 Pulse 106 H 05/11/23 23:00 Resp 24 05/11/23 23:00 BP 144/90 H 05/11/23 22:55 Pulse Ox 95 05/11/23 23:00 O2 Del Method Room Air 05/11/23 21:15 Course Vital Signs Vital signs: Vital Signs Temperature 101.1 F H 05/11/23 21:15 Pulse Rate 114 H 05/11/23 21:15 Respiratory Rate 16 05/11/23 21:15 Blood Pressure 138/95 H 05/11/23 21:15 Pulse Oximetry 95 11/15/23 21:15 Oxygen Delivery Method Room Air 05/11/23 21:15 Temperature 100.8 F H 05/11/23 22:51 Pulse Rate 106 H 05/11/23 23:00 Respiratory Rate 24 05/11/23 23:00 Blood Pressure 144/90 H 05/11/23 22:55 Pulse Oximetry 95 05/11/23 23:00 Oxygen Delivery Method Room Air 05/11/23 21:15 Medical Decision Making MDM Narrative Medical decision making narrative: the patient presents with neutropenic fever of uncertain etiology. Blood cultures were obtained. Urinalysis is negative. Chest x-ray shows no infiltrate. Blood sugar elevated and she was given IV fluids and IV insulin. She is being admitted. Treatment diagnosis and disposition were discussed with the patient. Lab Data Lab results reviewed: Yes I reviewed the patient's lab results Labs: Lab Results 05/11/23 05/11/23 05/11/23 Range/Units 21:40 21:55 22:50 WBC 1.2 L* (4.0-11.0) 10^3/uL RBC 4.74 (4.20-5.40) 10^6/uL Hgb 12.5 (12.0-16.0) g/dL Hct 36.1 (36.0-48.0) % MCV 76.2 L (81.0-99.0) fL MCH 26.4 L (26.7-34.0) pg MCHC 34.6 (29.9-35.2) g/dL RDW 12.4 (11.0-15.0) % Plt Count 185 (150-450) 10^3/uL MPV 10.6 (9.5-13.5) fL Seg Neuts % (Manual) 1.0 Band Neutrophils % 3.0 (0-5) % Lymphocytes % (Manual) 58.0 (20.5-60.0) % Monocytes % (Manual) 26.0 H (1.7-12.0) % Eosinophils % (Manual) 6.0 (0.9-7.0) % Basophils % (Manual) 0.0 L (0.2-2.0) % Metamyelocytes % 6.0 Neutrophils # (Manual) 0.01 L (1.4-6.5) 10^3/uL Band Neutrophils # 0.0 (0.0-0.3) 10^3/uL Lymphocytes # (Manual) 0.69 L (1.20-3.80) 10^3/uL Monocytes # (Manual) 0.31 (0.30-0.80) 10^3/uL Eosinophils # (Manual) 0.07 (0.00-0.70) 10^3/uL Basophils # (Manual) 0.00 (0.00-0.10) 10^3/uL Metamyelocytes # 0.07 Differential Comment Giant Platelets 1+ Sodium 130 L (136-145) mmol/L Potassium 2.6 L* (3.5-5.1) mmol/L Chloride 89 L (98-107) mmol/L Carbon Dioxide 29.8 (21.0-32.0) mmol/L Anion Gap 13.8 BUN 6.0 L (7.0-18.0) mg/dL Creatinine 1.19 H (0.55-1.02) mg/dL Est GFR ( Amer) 57 L (>=60) Est GFR (Non-Af Amer) 47 L (>=60) BUN/Creatinine Ratio 5.0 Glucose 458 H (74-106) mg/dL Calcium 8.9 (8.5-10.1) mg/dL Urine Color Lt. yellow (YELLOW) Urine Clarity Clear (CLEAR) Urine pH 6.5 (5.0-9.0) Ur Specific [place] 1.010 (1.005-1.025) Urine Protein 30 A (NEG/TRACE) mg/dL Urine Glucose (UA) >=1000 A (NEGATIVE) mg/dL Urine Ketones 15 A (NEGATIVE) mg/dL Urine Occult Blood Trace-i (NEGATIVE) Urine Nitrite Negative (NEGATIVE) Urine Bilirubin Negative (NEGATIVE) Urine Urobilinogen 0.2 (0.2-1.0) EU/dL Ur Leukocyte Esterase Negative (NEGATIVE) Urine RBC 0-2 (0-2) #/HPF Urine WBC None seen (NONE SEEN) #/HPF Ur Squamous Epith Cells Rare (NONE/RARE) #/LPF Urine Crystals None seen (None Seen) #/HPF Urine Bacteria None seen (NONE SEEN) #/HPF Urine Casts None seen (NONE SEEN) #/LPF Urine Mucus None seen (NONE SEEN) SARS-CoV-2 (PCR) Negative (NEGATIVE) POC Glucose (74-106) mg/dL 05/11/23 05/11/23 Range/Units 23:45 23:47 WBC (4.0-11.0) 10^3/uL RBC (4.20-5.40) 10^6/uL Hgb (12.0-16.0) g/dL Hct (36.0-48.0) % MCV (81.0-99.0) fL MCH (26.7-34.0) pg MCHC (29.9-35.2) g/dL RDW (11.0-15.0) % Plt Count (150-450) 10^3/uL MPV (9.5-13.5) fL Seg Neuts % (Manual) Band Neutrophils % (0-5) % Lymphocytes % (Manual) (20.5-60.0) % Monocytes % (Manual) (1.7-12.0) % Eosinophils % (Manual) (0.9-7.0) % Basophils % (Manual) (0.2-2.0) % Metamyelocytes % Neutrophils # (Manual) (1.4-6.5) 10^3/uL Band Neutrophils # (0.0-0.3) 10^3/uL Lymphocytes # (Manual) (1.20-3.80) 10^3/uL Monocytes # (Manual) (0.30-0.80) 10^3/uL Eosinophils # (Manual) (0.00-0.70) 10^3/uL Basophils # (Manual) (0.00-0.10) 10^3/uL Metamyelocytes # Differential Comment Giant Platelets Sodium (136-145) mmol/L Potassium (3.5-5.1) mmol/L Chloride (98-107) mmol/L Carbon Dioxide (21.0-32.0) mmol/L Anion Gap BUN (7.0-18.0) mg/dL Creatinine (0.55-1.02) mg/dL Est GFR ( Amer) (>=60) Est GFR (Non-Af Amer) (>=60) BUN/Creatinine Ratio Glucose (74-106) mg/dL Calcium (8.5-10.1) mg/dL Urine Color (YELLOW) Urine Clarity (CLEAR) Urine pH (5.0-9.0) Ur Specific [place] (1.005-1.025) Urine Protein (NEG/TRACE) mg/dL Urine Glucose (UA) (NEGATIVE) mg/dL Urine Ketones (NEGATIVE) mg/dL Urine Occult Blood (NEGATIVE) Urine Nitrite (NEGATIVE) Urine Bilirubin (NEGATIVE) Urine Urobilinogen (0.2-1.0) EU/dL Ur Leukocyte Esterase (NEGATIVE) Urine RBC (0-2) #/HPF Urine WBC (NONE SEEN) #/HPF Ur Squamous Epith Cells (NONE/RARE) #/LPF Urine Crystals (None Seen) #/HPF Urine Bacteria (NONE SEEN) #/HPF Urine Casts (NONE SEEN) #/LPF Urine Mucus (NONE SEEN) SARS-CoV-2 (PCR) (NEGATIVE) POC Glucose 376 H 431 H (74-106) mg/dL Imaging Data Chest x-ray: Radiologist's impression: Procedure: XR chest 1V EXAMINATION: XR chest 1V HISTORY: Cough and fever COMPARISON: Chest x-ray 05/02/2022 TECHNIQUE: Portable chest FINDINGS: The lung parenchyma is free of consolidation or infiltrate. No pneumothorax or pleural effusion. Left-sided central venous access port. The cardiac, mediastinal and hilar contours are normal. Surgical clips within the right axilla. The visualized osseous structures exhibit no gross abnormality. IMPRESSION: No acute cardiopulmonary abnormality. Electronically authenticated by: MYRANDA BOBO Date: 05/11/2023 21:53 Discharge Plan Discharge Chief Complaint: Dizziness Time of Disposition Decision: 00:02 Prescriptions / Home Meds: No Action ondansetron HCl 8 mg tablet oxycodone-acetaminophen 5-325 mg tablet duloxetine 60 mg capsule,delayed release(DR/EC) PO quetiapine 25 mg tablet 25 mg PO .hs celecoxib 200 mg capsule 200 mg PO DAILY atorvastatin 20 mg tablet 20 mg PO DAILY citalopram 10 mg tablet 10 mg PO DAILY cyanocobalamin (vitamin B-12) 1,000 mcg tablet 1,000 mcg PO DAILY hydroxyzine pamoate 50 mg capsule 50 mg PO TID PRN (Reason: anxiety) (DME) OneTouch Ultra Test Strip MISCELLANEOUS alprazolam 0.25 mg tablet 0.25 mg PO QID PRN (Reason: anxiety) metoclopramide HCl 5 mg tablet 5 mg PO BIDWM trazodone 100 mg tablet 100 mg PO .HS PRN (Reason: insomnia) meclizine 25 mg tablet 25 mg PO Q8H PRN (Reason: dizziness or vertigo) metformin 500 mg tablet extended release 24 hr 1,000 mg PO BID lamotrigine 100 mg tablet 100 mg PO DAILY loratadine 10 mg tablet 10 mg PO DAILY duloxetine 40 mg capsule,delayed release(DR/EC) 40 mg PO BID (DME) FreeStyle Nanette 2 Sensor Kit MISCELLANEOUS Jardiance 25 mg tablet 25 mg PO DAILY Rx Instructions: PER RETAIL FILL HX - LAST FILLED 12/15/22 gabapentin 600 mg tablet 600 mg PO TID Rx Instructions: PER RETAIL FILL HX - LAST FILLED 12/15/22 midodrine 10 mg tablet 10 mg PO TID Rx Instructions: do not give last dose of day after 6PM or within 4 hrs of bedtime PER RETAIL FILL HX - LAST FILLED 12/15/22 pantoprazole 40 mg tablet,delayed release (DR/EC) 40 mg PO BID Rx Instructions: PER RETAIL FILL HX - LAST FILLED 12/15/22 quetiapine 200 mg tablet 200 mg PO DAILY Rx Instructions: AT BEDTIME PER RETAIL FILL HX - 12/15/22 insulin glargine [Lantus U-100 Insulin] 100 unit/mL solution 32 unit subcut QPM
--- NOTE | 2023-05-11 21:34 | PC.NURSE ---
Patient comes to ED by EMS after vomiting for the past 3 days and being unable to eat anything. She has dx of breast cancer and has had a right mastectomy. She has an implanted port in the left upper chest that was placed about 2 weeks ago, the day before she received her first dose of chemo through her port. That is the only dose she has gotten so far. She is also a diabetic patient. She is complaining of dizziness and a headache as well as an earache in the right ear. She is feverish tonight, but states she has not been at home. Her mastectomy scar is well healed at this point, and the port incision is still scabbed, but shows no signs of infection.
[2023-05-11] MEDS: 0.9 % SODIUM CHLORIDE 1,000 ML 1000 ML IV (21:46)
[2023-05-11] MEDS: ONDANSETRON PF 4 MG/2 ML VIAL IV (21:52)
[2023-05-11] MEDS: ACETAMINOPHEN 325 MG TABLET 650 MG PO (21:53)
[2023-05-11 21:54] LABS: Hematocrit 36.1 % (36.0-48.0); Hemoglobin 12.5 g/dL (12.0-16.0); Mean Corpuscular HGB Conc 34.6 g/dL (29.9-35.2); Mean Corpuscular Hemoglobin 26.4 pg (26.7-34.0); Mean Corpuscular Volume 76.2 fL (81.0-99.0); Mean Platelet Volume 10.6 fL (9.5-13.5); Platelet Count 185 10^3/uL (150-450); Red Blood Count 4.74 10^6/uL (4.20-5.40); Red Cell Distribution Width 12.4 % (11.0-15.0)
[2023-05-11 21:56] LABS: White Blood Count 1.2 10^3/uL (4.0-11.0)
[2023-05-11 22:03] LABS: Anion Gap 13.8; Calcium 8.9 mg/dL (8.5-10.1); Carbon Dioxide 29.8 mmol/L (21.0-32.0); Chloride 89 mmol/L (98-107); Estimated GFR (African America 57 (>=60); Estimated GFR (Non-African Ame 47 (>=60); Glucose 458 mg/dL (74-106); Sodium 130 mmol/L (136-145)
[2023-05-11 22:04] LABS: Potassium 2.6 mmol/L (3.5-5.1)
[2023-05-11 22:14] LABS: Lymphocytes Absolute Manual 0.69 10^3/uL (1.20-3.80); Monocytes Absolute Manual 0.31 10^3/uL (0.30-0.80); Segmented Neut Absolute Manual 0.01 10^3/uL (1.4-6.5)
[2023-05-11 22:15] LABS: Eosinophils Absolute Manual 0.07 10^3/uL (0.00-0.70); Giant Platelets 1+; Metamyelocytes Absolute Manual 0.07
[2023-05-11 22:19] LABS: SARS-CoV-2 Ag NEGATIVE (NEGATIVE)
[2023-05-11] MEDS: INSULIN REGULAR 300 UNITS/3 ML 8 UNIT SUBQ (22:30)
[2023-05-11 23:21] LABS: Bilirubin Urine NEGATIVE (NEGATIVE); Blood Urine TRACE-I (NEGATIVE); Clarity Urine CLEAR (CLEAR); Color Urine LT. YELLOW (YELLOW); Glucose Urine UA >=1000 mg/dL (NEGATIVE); Ketones Urine 15 mg/dL (NEGATIVE); Leukocyte Esterase Urine NEGATIVE (NEGATIVE); Nitrite Urine NEGATIVE (NEGATIVE); Protein Urine 30 mg/dL (NEG/TRACE); Urobilinogen Urine 0.2 EU/dL (0.2-1.0); pH Urine 6.5 (5.0-9.0)
[2023-05-11 23:39] LABS: Bacteria Urine NONE SEEN #/HPF (NONE SEEN); Cast Seen? NONE SEEN #/LPF (NONE SEEN); Crystals Seen? None Seen #/HPF (None Seen); Mucus Urine NONE SEEN (NONE SEEN); RBC Urine 0-2 #/HPF (0-2); Squamous Epithelial Cell Urine RARE #/LPF (NONE/RARE); WBC Urine NONE SEEN #/HPF (NONE SEEN)
[2023-05-11 23:50] LABS: Glucometer 376 mg/dL (74-106)
[2023-05-11 23:50] LABS: Glucometer 431 mg/dL (74-106)
[2023-05-12] VITALS (20 sets, daily range): BP systolic 126–150; BP diastolic 78–94; PULSE 90–109; RESP 16–23; TEMP 36.6–37.2; O2SAT 91–95; BMI 29.4
[2023-05-12] MEDS: PIPERACILLIN SODIUM/TAZOBACTAM 4.5 GM in 0.9 % SODIUM CHLORIDE 50 ML IV (00:25)
[2023-05-12] MEDS: VANCOMYCIN HCL 1,000 MG in 0.9 % SODIUM CHLORIDE 250 ML 250 MG IV ×2 (01:16→14:25)
[2023-05-12 01:46] LABS: Glucometer 356 mg/dL (74-106)
--- NOTE | 2023-05-12 02:21 | W.PM.TELEPN ---
Progress Note: Subjective Subjective Interval history: The patient is a a 57-year-old female with history of diabetes who was recently diagnosed with breast cancer status postmastectomy and underwent port placement and chemotherapy 2 weeks ago. Since then, she has had a decrease in appetite, has felt dizzy, has had some vomiting and some generalized abdominal discomfort. She denies any unusual food intake, any sick contacts or any recent travel. She presented to the ED and was noted to have a fever of 100.8 and was found to have neutropenia with white blood cell count of 1.2. She was also noted to have hyponatremia and hypokalemia. Blood sugar was 458. In the ED, she was given IV fluids, insulin and Tylenol. She is being admitted for further evaluation. Exam Narrative Exam Narrative: General : Alert and oriented x3 HEENT : Extraocular movements intact, pupils equal round and reactive to light and accommodation Neck: Supple, no JVD Chest: Clear to auscultation bilaterally, no wheezes Heart: Regular rate and rhythm, S1 and S2 heard Abdomen: Soft nontender nondistended. Extremities: No clubbing cyanosis or edema Neurologically: Moving all 4 extremities Skin: Rash over both sides of the neck, scalp and shoulders, nonpruritic Constitutional Vital Signs, click to edit/add: Last Vital Signs Temp 98.8 F 05/12/23 00:49 Pulse 98 H 05/12/23 00:49 Resp 20 05/12/23 00:49 BP 138/88 05/12/23 00:49 Pulse Ox 91 L 05/12/23 00:49 O2 Del Method Room Air 05/12/23 00:49 Progress Note: Objective Labs Labs: Short CBC 05/11/23 Range/Units 21:40 WBC 1.2 L* (4.0-11.0) 10^3/uL Hgb 12.5 (12.0-16.0) g/dL Hct 36.1 (36.0-48.0) % Plt Count 185 (150-450) 10^3/uL BMP 05/11/23 21:40 Sodium 130 L Potassium 2.6 L* Chloride 89 L Carbon Dioxide 29.8 BUN 6.0 L Creatinine 1.19 H Glucose 458 H Calcium 8.9 Urine 05/11/23 Range/Units 22:50 Urine Color Lt. yellow (YELLOW) Urine Clarity Clear (CLEAR) Urine pH 6.5 (5.0-9.0) Ur Specific [place] 1.010 (1.005-1.025) Urine Protein 30 A (NEG/TRACE) mg/dL Urine Glucose (UA) >=1000 A (NEGATIVE) mg/dL Progress Note: A&P Assessment and Plan (1) Neutropenic fever: (2) Hyperglycemia due to diabetes mellitus: Plan The patient is a 57-year-old female with above medical problems, presenting with neutropenic fever. Neutropenic fever -Patient recently had chemotherapy for breast cancer -Place in neutropenic precautions -Empiric antibiotics with Zosyn and vancomycin Hyponatremia -Likely pseudohyponatremia in the setting of hyperglycemia -Monitor labs Hypokalemia -Secondary to persistent vomiting -Add potassium and IV fluids Diabetes -Sliding scale coverage DVT Prophylaxis -Lovenox, SCDs Medication review -Medication reconciliation form completed Goals of care -Full code Communications -Discussed with the emergency room physician -Discussed with the bedside nurse -Patient updated of plan of care, all questions answered to their satisfaction Disposition -Home when medically stable Telemedicine clause -As the provider of this telehealth evaluation, requested by the patient's evaluating physician, I attest that I introduced myself to the patient, provided my credentials and determined that telemedicine via a real-time, two-way interactive audio and video platform is an appropriate and effective means of providing this service. -I reviewed the patient's chart and had a discussion with the member of the patient's treatment team. -The patient and I mutually agreed with continuation of this evaluation via telemedicine. The patient consented for the telemedicine evaluation. -This virtual encounter was taken place from [place], [place]. The encounter was approximately 35 minutes. The nurse was present during the entire time of the encounter and was able to remove the stethoscope and appropriate directions. The patient was evaluated at [facility] Telemedicine Attestation Telemedicine Attestation I conducted this encounter from [] via secure live, [id number] video conference with the patient, located at [facility] with []. Prior to the interview, the risks and benefits of telemedicine were discussed with the patient and verbal consent was obtained.
[2023-05-12] MEDS: POTASSIUM CHLORIDE IN 0.9%NACL 1,000 ML 100 MEQ IV (03:54)
[2023-05-12] MEDS: OXYCODONE HCL/ACETAMINOPHEN 5MG/325MG 1 TAB PO ×3 (04:07→21:09)
[2023-05-12 04:37] LABS: Eosinophils Percent Auto 3.1 % (0.9-7.0); Hematocrit 43.7 % (36.0-48.0); Hemoglobin 15.2 g/dL (12.0-16.0); Immature Granulocytes Abs Auto 0.03 10^3/uL (0.00-0.03); Immature Granulocytes Pct Auto 3.1 % (0.0-0.5); Lymphocytes Absolute Auto 0.5 10^3/uL (1.2-3.8); Mean Corpuscular HGB Conc 34.8 g/dL (29.9-35.2); Mean Corpuscular Hemoglobin 26.6 pg (26.7-34.0); Mean Corpuscular Volume 76.4 fL (81.0-99.0); Mean Platelet Volume 10.2 fL (9.5-13.5); Monocytes Absolute Auto 0.3 10^3/uL (0.3-0.8); Monocytes Percent Auto 27.6 % (1.7-12.0); Neutrophils Absolute Auto 0.1 10^3/uL (1.4-6.5); Neutrophils Percent Auto 14.2 % (43.0-75.0); Platelet Count 116 10^3/uL (150-450); Red Blood Count 5.72 10^6/uL (4.20-5.40); Red Cell Distribution Width 12.5 % (11.0-15.0)
[2023-05-12 04:51] LABS: Anion Gap 11.6; BUN Creatinine Ratio 6.5; Calcium 8.4 mg/dL (8.5-10.1); Carbon Dioxide 30.8 mmol/L (21.0-32.0); Chloride 94 mmol/L (98-107); Estimated GFR (African America >60 (>=60); Estimated GFR (Non-African Ame >60 (>=60); Glucose 291 mg/dL (74-106); Sodium 134 mmol/L (136-145)
[2023-05-12 05:02] LABS: Potassium 2.4 mmol/L (3.5-5.1)
[2023-05-12 07:40] LABS: Glucometer 281 mg/dL (74-106)
[2023-05-12] MEDS: PIPERACILLIN SODIUM/TAZOBACTAM 3.375 GM in 0.9 % SODIUM CHLORIDE 50 ML IV ×2 (08:13→18:21)
[2023-05-12] MEDS: ENOXAPARIN SODIUM 40 MG/0.4 ML SYRINGE SUBQ (08:13)
[2023-05-12] MEDS: DULOXETINE HCL 60 MG CAPSULE.DR PO ×2 (08:14→21:03)
[2023-05-12] MEDS: METFORMIN HCL 500 MG TAB.ER.24H 1000 MG PO ×2 (08:14→17:52)
[2023-05-12] MEDS: IBUPROFEN 600 MG TABLET PO (08:14)
[2023-05-12] MEDS: CANAGLIFLOZIN 100 MG TABLET PO (08:14)
[2023-05-12] MEDS: QUETIAPINE FUMARATE 100 MG TABLET 200 MG PO (08:14)
[2023-05-12] MEDS: CETIRIZINE HCL 10 MG TABLET PO (08:14)
[2023-05-12] MEDS: OMEPRAZOLE 40 MG CAPSULE.DR PO ×2 (08:15→21:04)
[2023-05-12] MEDS: CELECOXIB 200 MG CAPSULE PO (08:15)
[2023-05-12] MEDS: ATORVASTATIN CALCIUM 20 MG TABLET PO (08:16)
[2023-05-12] MEDS: LAMOTRIGINE 100 MG TABLET PO (08:16)
[2023-05-12] MEDS: METOCLOPRAMIDE HCL 10 MG TABLET 5 MG PO ×2 (08:16→17:52)
[2023-05-12] MEDS: CITALOPRAM HYDROBROMIDE 20 MG TABLET 10 MG PO (08:16)
[2023-05-12] MEDS: INSULIN ASPART 300 UNIT/3 ML PEN SUBQ ×4 (08:17→21:38)
[2023-05-12] MEDS: ONDANSETRON PF 4 MG/2 ML VIAL IV (08:20)
[2023-05-12 09:35] LABS: Adenovirus NOT DETECTED (NOT DETECTE); Coronavirus 229E NOT DETECTED (NOT DETECTE); Coronavirus HKU1 NOT DETECTED (NOT DETECTE); Coronavirus NL63 NOT DETECTED (NOT DETECTE); Coronavirus OC43 NOT DETECTED (NOT DETECTE)
[2023-05-12 09:36] LABS: Bordetella parapertussis NOT DETECTED (NOT DETECTE); Human Metapneumovirus NOT DETECTED (NOT DETECTE); Human Rhinovirus/Enterovirus NOT DETECTED (NOT DETECTE); Influenza A NOT DETECTED (NOT DETECTE); Influenza B NOT DETECTED (NOT DETECTE); Mycoplasma pneumoniae NOT DETECTED (NOT DETECTE); Parainfluenza Virus 1 NOT DETECTED (NOT DETECTE); Parainfluenza Virus 2 NOT DETECTED (NOT DETECTE); Parainfluenza Virus 3 NOT DETECTED (NOT DETECTE); Parainfluenza Virus 4 NOT DETECTED (NOT DETECTE); Respiratory Syncytial Virus NOT DETECTED (NOT DETECTE); SARS-CoV-2 NOT DETECTED (NOT DETECTE)
--- NOTE | 2023-05-12 10:12 | PC.NURSE ---
Patient given a hospital phone charging cord. Notified patient that cord is to stay at hospital when patient gets discharged. Patient states no problem, I understand .
[2023-05-12] MEDS: POTASSIUM CHLORIDE 40 MEQ in 0.9 % SODIUM CHLORIDE 250 ML 67.5 MEQ IV (10:20)
[2023-05-12 11:21] LABS: Glucometer 210 mg/dL (74-106)
--- NOTE | 2023-05-12 11:35 | PM.HP ---
H&P: HPI History of Present Illness Chief complaint: GENERAL WEAKNESS Narrative: patient is a 57-year-old female with past medical history of bipolar disorder, insulin-dependent type 2 diabetes, diabetic neuropathy, hyperlipidemia, GERD, right sided breast cancer status post right vasectomy, and port placement for chemotherapy presented to the Emergency Room last night with nausea, vomiting, diarrhea. Patient reports her 1st and last chemotherapy was approximately two weeks ago. And on Tuesday of this week she developed nausea and vomiting with some diarrhea. She felt like she had chills, uncertain about fever. She denies any sick contacts. She states that she's been taking her medications as prescribed including her insulin. She denies any high blood sugar readings at the time but states that the Emergency Room physician told her that she did have high glucose. She follows in [place] with Dr. Nash as her oncologist who has been providing her chemotherapy. She also follows closely with her primary care physician and psychiatrist. At the time of admission exam she states she has a slight headache and still feels some nausea, but has not had any episodes of vomiting or diarrhea. She denies any chest pain shortness of breath or fevers at this time. Review of Systems ROS Narrative ROS: a complete review of systems were reviewed with patient and are positive as below or listed in History of Chief Complaint. General: no fever, but chills, no night sweats Head: no headache, trauma, visual changes, nausea or vomiting Skin: no reported rashes, itching or sores Eyes: no blurriness of vision Ears: no reported hearing loss, vertigo, earache, or tinnitus Throat: no sore throat, hoarseness, swelling of neck, or tongue pain Heart: no chest pain Lungs: no shortness of breath or cough GI: diarrhea , vomiting and nausea Urinary: no urinary urgency, frequency or pain Neuro: no numbness or tingling HEM: no bleeding issues or bruising ENDO: no thyroid problems Psych: no anxiety or depression [facility] Medical History (Updated 05/12/23 @ 12:35 by Lizabeth Rubin DO) Bipolar disease, chronic ?F31.9 - Bipolar disorder, unspecified (ICD-10) Breast cancer ?C50.919 - Malignant neoplasm of unspecified site of unspecified female breast (ICD-10) Diabetes ?E11.9 - Type 2 diabetes mellitus without complications (ICD-10) Gastroparesis ?K31.84 - Gastroparesis (ICD-10) Heart disease ?I51.9 - Heart disease, unspecified (ICD-10) Hyperlipidemia ?E78.5 - Hyperlipidemia, unspecified (ICD-10) Pneumonia ?J18.9 - Pneumonia, unspecified organism (ICD-10) Surgical History H/O right mastectomy ?Z90.11 - Acquired absence of right breast and nipple (ICD-10) H/O tubal ligation ?Z98.51 - Tubal ligation status (ICD-10) History of cholecystectomy ?Z90.49 - Acquired absence of other specified parts of digestive tract (ICD-10) Family History Father Family history of CHF (congestive heart failure) Family history of cancer Family history of hypertension Family history of myocardial infarction Family history of stroke Brother Family history of COPD (chronic obstructive pulmonary disease) Family history of hypertension Grandmother Family history of diabetes mellitus Grandfather Family history of diabetes mellitus Mother Family history of hypertension Social History Within the past year, how often did you have a drink containing alcohol: never Score interpretation: A score less than 3 is consistent with normal alcohol consumption. Smoking status: Never smoker Non-prescribed substance use: denies use Previous occupational history: Disability Highest level of school completed/degree received: high school graduate Are you now , , , , never or living with a partner: In a typical week, how many times do you talk on the telephone with family, friends, or neighbors: 3 or more times per week How often do you get together with friends or relatives: 3 or more times per week Little interest or pleasure in doing things: several days Feeling down, depressed, or hopeless: more than half the days Feel stressed/tense/nervous/anxious/difficulty sleeping: to some extent Do you think of yourself as: straight/heterosexual Gender Identity: female Meds Home Medications and Allergies Home Medications Medication Instructions Recorded Confirmed Type alprazolam 0.25 mg tablet 0.25 mg PO QID PRN anxiety 01/05/23 05/11/23 History atorvastatin 20 mg tablet 20 mg PO DAILY 01/05/23 05/11/23 History celecoxib 200 mg capsule 200 mg PO DAILY 01/05/23 05/11/23 History citalopram 10 mg tablet 10 mg PO DAILY 01/05/23 05/11/23 History cyanocobalamin (vitamin B-12) 1,000 mcg PO DAILY 01/05/23 05/11/23 History 1,000 mcg tablet empagliflozin 25 mg tablet 25 mg PO DAILY 01/05/23 05/11/23 History (Jardiance) flash glucose sensor (FreeStyle 01/05/23 05/11/23 History Nanette 2 Sensor kit) gabapentin 600 mg tablet 600 mg PO TID 01/05/23 05/11/23 History hydroxyzine pamoate 50 mg capsule 50 mg PO TID PRN anxiety 01/05/23 05/11/23 History insulin glargine 100 unit/mL 32 unit subcut QPM 01/05/23 05/11/23 History subcutaneous solution (Lantus U-100 Insulin) lamotrigine 100 mg tablet 100 mg PO DAILY 01/05/23 05/11/23 History loratadine 10 mg tablet 10 mg PO DAILY 01/05/23 05/11/23 History meclizine 25 mg tablet 25 mg PO Q8H PRN dizziness or 01/05/23 05/11/23 History vertigo metformin 500 mg tablet,extended 1,000 mg PO BID 01/05/23 05/11/23 History release 24 hr metoclopramide HCl 5 mg tablet 5 mg PO BIDWM 01/05/23 05/11/23 History midodrine 10 mg tablet 10 mg PO TID 01/05/23 05/12/23 History pantoprazole 40 mg tablet,delayed 40 mg PO BID 01/05/23 05/11/23 History release quetiapine 200 mg tablet 200 mg PO DAILY 01/05/23 05/11/23 History quetiapine 25 mg tablet 25 mg PO .hs 01/05/23 05/11/23 History trazodone 100 mg tablet 100 mg PO .HS PRN insomnia 01/05/23 05/11/23 History duloxetine 60 mg capsule,delayed 60 mg PO BID 05/11/23 05/12/23 History release ondansetron HCl 8 mg tablet 8 mg PO Q8H PRN nausea and vomiting 05/11/23 05/12/23 History oxycodone-acetaminophen 5 mg-325 1 tab PO Q6H PRN pain 05/11/23 05/12/23 History mg tablet Allergies Allergy/AdvReac Type Severity Reaction Status Date / Time lithium Allergy Verified 05/11/23 21:18 metformin Allergy Verified 05/11/23 21:18 ziprasidone [From Geodon] Allergy Verified 05/11/23 21:18 Exam Narrative Exam Narrative: General: Patient is alert, and oriented to person, place and time with normal affect, proper hygiene Skin: no visible rashes, or ulcers Head: atraumatic, acephalic Eyes: PERRLA, no nystagmus present, conjunctiva clear, no scleral icterus Ears: normal gross auditory acuity Nose: symmetric, no discharge, no maxillary or frontal sinus tenderness Neck: no masses palpated, normal thyroid Heart: Normal rate and rhythm, no murmurs/rubs/gallops Lungs: no audible wheezes, crackles and normal breath sounds all lung avila Abdomen: Normal audible bowel sounds, no distension, No palpable masses, no organomegaly, no rebound/guarding/ or rigidity Musculoskeletal: no swelling bilateral lower extremities Neuro: CN II-X grossly intact Constitutional Vital Signs, click to edit/add: Last Vital Signs Temp 98.7 F 05/12/23 05:52 Pulse 103 H 05/12/23 09:52 Resp 20 05/12/23 05:52 BP 135/87 05/12/23 05:52 Pulse Ox 91 L 05/12/23 05:52 O2 Del Method Room Air 05/12/23 05:52 Results Labs Labs: Short CBC 05/11/23 05/12/23 Range/Units 21:40 04:05 WBC 1.2 L* 1.0 L* (4.0-11.0) 10^3/uL Hgb 12.5 15.2 (12.0-16.0) g/dL Hct 36.1 43.7 (36.0-48.0) % Plt Count 185 116 L (150-450) 10^3/uL BMP 05/11/23 05/12/23 21:40 04:05 Sodium 130 L 134 L Potassium 2.6 L* 2.4 L* Chloride 89 L 94 L Carbon Dioxide 29.8 30.8 BUN 6.0 L 6.0 L Creatinine 1.19 H 0.92 Glucose 458 H 291 H Calcium 8.9 8.4 L Urine 05/11/23 Range/Units 22:50 Urine Color Lt. yellow (YELLOW) Urine Clarity Clear (CLEAR) Urine pH 6.5 (5.0-9.0) Ur Specific [place] 1.010 (1.005-1.025) Urine Protein 30 A (NEG/TRACE) mg/dL Urine Glucose (UA) >=1000 A (NEGATIVE) mg/dL Assessment and Plan Assessment and Plan (1) Neutropenic fever: Assessment and Plan: I called and spoke with Dr. Nash, her oncologist, they plan to reach out and get patient follow up and make changes to next round of chemotherapy. Will continue IV antibiotics for now, But patient has remained Afebrile, UA negative, Respiratory panel negative, Chest X-ray negative and feel the fever is more related to a Gastroenteritis. Dr. Nash will see her in close follow up and agrees with no antibiotics at discharge for now. Neutropenic precautions, continue Zosyn and Vanc, cultures pending (2) Hyperglycemia due to diabetes mellitus: Assessment and Plan: at admission looks more like acute DKA with anion Gap of 13.8 but down to 11.6 with fluids and SSI. glucose was 458, now 291. Will resume home long activing and SSI. here, q6 hour glucoses while not eating. This could also be why she is having the n/v/d (3) Acute hypokalemia: Assessment and Plan: most likely from diarrhea/vomiting, replace IV and orally, monitor (4) Breast cancer: Assessment and Plan: s/p mastectomy on the right and just starte first round of chemotherapy, Spoke with Dr. Nash about labs, They will make adjustments with next dose. Qualifiers: Breast location: unspecified site of breast Estrogen receptor status: unspecified Patient sex: female Laterality: right Qualified Code(s): C50.911 - Malignant neoplasm of unspecified site of right female breast (5) Diabetes: Assessment and Plan: continue long acting insulin, SSI Qualifiers: Diabetes mellitus type: type 2 Diabetes mellitus [facility] insulin use: with terminal make up operator use Diabetes mellitus complication status: with neurologic complications Diabetes mellitus complication detail: with unspecified neuropathy Qualified Code(s): E11.40 - Type 2 diabetes mellitus with diabetic neuropathy, unspecified; Z79.4 - buttermaker (current) use of insulin (6) Gastroparesis: Assessment and Plan: continue reglan (7) Hyperlipidemia: Assessment and Plan: continue statin (8) Bipolar disease, chronic: Assessment and Plan: continue home meds Plan patient is a full code cannot consult her oncologist but did speak over the phone, no new orders Lovenox for DVT prophylaxis patient is observation status, hopeful discharge tomorrow
--- NOTE | 2023-05-12 11:57 | CM.NOTE ---
Rounds made with Dr. Rubin, pt in reverse isolation d/t neutropenia. Dr. Rubin will reach out to Dr. Nash today for further input on plan of care.
[2023-05-12] MEDS: GABAPENTIN 300 MG CAPSULE 600 MG PO ×2 (14:26→21:03)
[2023-05-12] MEDS: PROMETHAZINE HCL 25 MG/ML VIAL 12.5 MG IV ×2 (14:26→21:09)
[2023-05-12] MEDS: MIDODRINE HCL 5 MG TABLET 10 MG PO ×2 (14:26→21:03)
[2023-05-12] MEDS: POTASSIUM CHLORIDE 10 MEQ ER TABLET 20 MEQ PO ×2 (14:26→21:03)
[2023-05-12 14:59] LABS: Potassium 3.1 mmol/L (3.5-5.1)
[2023-05-12 16:46] LABS: Glucometer 242 mg/dL (74-106)
[2023-05-12] MEDS: QUETIAPINE FUMARATE 25 MG TABLET PO (21:09)
[2023-05-12 21:33] LABS: Glucometer 196 mg/dL (74-106)
[2023-05-12] MEDS: INSULIN DETEMIR 300 UNIT/3 ML INSULN.PEN 32 UNIT SUBQ (21:37)
[2023-05-13] VITALS (9 sets, daily range): BP systolic 161; BP diastolic 92; PULSE 91–110; RESP 20; TEMP 36.6; O2SAT 92
[2023-05-13] MEDS: VANCOMYCIN HCL 1,000 MG in 0.9 % SODIUM CHLORIDE 250 ML 250 MG IV (00:05)
[2023-05-13] MEDS: PIPERACILLIN SODIUM/TAZOBACTAM 3.375 GM in 0.9 % SODIUM CHLORIDE 50 ML IV ×2 (01:56→08:48)
[2023-05-13] MEDS: GABAPENTIN 300 MG CAPSULE 600 MG PO (05:01)
[2023-05-13] MEDS: POTASSIUM CHLORIDE 10 MEQ ER TABLET 20 MEQ PO (05:01)
[2023-05-13] MEDS: MIDODRINE HCL 5 MG TABLET 10 MG PO (05:02)
[2023-05-13 05:30] LABS: Basophils Percent Auto 0.2 % (0.2-2.0); Eosinophils Absolute Auto 0.1 10^3/uL (0.0-0.7); Eosinophils Percent Auto 1.1 % (0.9-7.0); Hematocrit 30.7 % (36.0-48.0); Hemoglobin 10.4 g/dL (12.0-16.0); Immature Granulocytes Abs Auto 0.67 10^3/uL (0.00-0.03); Immature Granulocytes Pct Auto 10.4 % (0.0-0.5); Lymphocytes Absolute Auto 1.1 10^3/uL (1.2-3.8); Lymphocytes Percent Auto 17.6 % (20.5-60.0); Mean Corpuscular HGB Conc 33.9 g/dL (29.9-35.2); Mean Corpuscular Hemoglobin 26.6 pg (26.7-34.0); Mean Corpuscular Volume 78.5 fL (81.0-99.0); Mean Platelet Volume 11.3 fL (9.5-13.5); Monocytes Percent Auto 15.1 % (1.7-12.0); Neutrophils Absolute Auto 3.6 10^3/uL (1.4-6.5); Neutrophils Percent Auto 55.6 % (43.0-75.0); Platelet Count 151 10^3/uL (150-450); Red Blood Count 3.91 10^6/uL (4.20-5.40); White Blood Count 6.4 10^3/uL (4.0-11.0)
[2023-05-13 05:34] LABS: Anion Gap 13.5; Calcium 7.9 mg/dL (8.5-10.1); Carbon Dioxide 27.5 mmol/L (21.0-32.0); Chloride 101 mmol/L (98-107); Estimated GFR (African America >60 (>=60); Estimated GFR (Non-African Ame >60 (>=60); Glucose 182 mg/dL (74-106); Sodium 139 mmol/L (136-145)
[2023-05-13 07:21] LABS: Glucometer 167 mg/dL (74-106)
[2023-05-13] MEDS: OMEPRAZOLE 40 MG CAPSULE.DR PO (08:48)
[2023-05-13] MEDS: PROMETHAZINE HCL 25 MG/ML VIAL 12.5 MG IV (08:48)
[2023-05-13] MEDS: METOCLOPRAMIDE HCL 10 MG TABLET 5 MG PO (08:48)
[2023-05-13] MEDS: CETIRIZINE HCL 10 MG TABLET PO (08:48)
[2023-05-13] MEDS: ENOXAPARIN SODIUM 40 MG/0.4 ML SYRINGE SUBQ (08:48)
[2023-05-13] MEDS: CANAGLIFLOZIN 100 MG TABLET PO (08:48)
[2023-05-13] MEDS: ATORVASTATIN CALCIUM 20 MG TABLET PO (08:48)
[2023-05-13] MEDS: CELECOXIB 200 MG CAPSULE PO (08:48)
[2023-05-13] MEDS: DULOXETINE HCL 60 MG CAPSULE.DR PO (08:49)
[2023-05-13] MEDS: QUETIAPINE FUMARATE 100 MG TABLET 200 MG PO (08:49)
[2023-05-13] MEDS: CITALOPRAM HYDROBROMIDE 20 MG TABLET 10 MG PO (08:49)
[2023-05-13] MEDS: LAMOTRIGINE 100 MG TABLET PO (08:50)
[2023-05-13] MEDS: METFORMIN HCL 500 MG TAB.ER.24H 1000 MG PO (08:50)
--- NOTE | 2023-05-13 09:10 | PM.DS1 ---
DS: Providers Provider Date of admission: 05/12/23 00:56 Primary care physician: Non-Staff Physician, Admitting clinician: Mirna Serrano Consults: 05/12/23 02:10 Physical Therapy Eval and Treat Routine Reason for consultation: weakness Attending physician on discharge: Lizabeth Rubin DS: Diagnosis Discharge Diagnosis (1) Neutropenic fever: (2) Hyperglycemia due to diabetes mellitus: (3) Acute hypokalemia: (4) Breast cancer: Qualifiers: Breast location: unspecified site of breast Estrogen receptor status: unspecified Laterality: right Patient sex: female Qualified Code(s): C50.911 - Malignant neoplasm of unspecified site of right female breast (5) Diabetes: Qualifiers: Diabetes mellitus complication detail: with unspecified neuropathy Diabetes mellitus complication status: with neurologic complications Diabetes mellitus skilled nursing insulin use: with skilled nursing use Diabetes mellitus type: type 2 Qualified Code(s): E11.40 - Type 2 diabetes mellitus with diabetic neuropathy, unspecified; Z79.4 - terminal operations supervisor (current) use of insulin (6) Gastroparesis: (7) Hyperlipidemia: (8) Bipolar disease, chronic: DS: Summary Hospital Course Hospital Course: patient is a 57-year-old female with past medical history of bipolar disorder, insulin-dependent type 2 diabetes, diabetic neuropathy, hyperlipidemia, GERD, right sided breast cancer status post right mastectomy, and port placement for chemotherapy. presented with nausea, vomiting, diarrhea. She follows in [place] with Dr. Nash as her oncologist who has been providing her chemotherapy. Patient reports her 1st and last chemotherapy was approximately two weeks ago. symptoms started this past Tuesday. I called and spoke with Dr. Nash, her oncologist, they plan to reach out and get patient follow up and make changes to next round of chemotherapy. I continued IV antibiotics of Vanc and Zosyn. Patient has remained Afebrile, UA negative, Respiratory panel negative, Chest X-ray negative and Blood cultures show no growth x 36 hours. I feel the fever is more related to a Gastroenteritis. Dr. Nash will see her in close follow up and agrees with no antibiotics at discharge. Neutropenic precautions while inpatient, but WBC's and Neutrophils improved. Patient also had acute hypokalemia 2.4 from the vomiting and diarrhea. Given IV and oral potassium. Will place on Klor-con 20meq TID x 7 days at home. She will need a follow up BMP within the week to see if potassium supplementation should continue. No other changes to her home medications. Symptoms have improved since admission. She will be discharged home today with close oncology follow up. She is to return to ER with any worsening signs or symptoms. Status at Discharge Functional status at discharge: independent ambulation Overall status at discharge: patient is back to baseline Time Spent with Patient Time attestation: Total time spent providing and/or coordinating discharge services: Time spent: greater than 30 minutes Exam Narrative Exam Narrative: General: Patient is alert, and oriented to person, place and time with normal affect, proper hygiene Skin: no visible rashes, or ulcers Head: atraumatic, acephalic Eyes: PERRLA, no nystagmus present, conjunctiva clear, no scleral icterus Ears: normal gross auditory acuity Nose: symmetric, no discharge, no maxillary or frontal sinus tenderness Neck: no masses palpated, normal thyroid Heart: Normal rate and rhythm, no murmurs/rubs/gallops Lungs: no audible wheezes, crackles and normal breath sounds all lung avila Abdomen: Normal audible bowel sounds, no distension, No palpable masses, no organomegaly, no rebound/guarding/ or rigidity Musculoskeletal: no swelling bilateral lower extremities Neuro: CN II-X grossly intact Constitutional Vital Signs, click to edit/add: Last Vital Signs Temp 97.8 F 05/13/23 05:08 Pulse 93 H 05/13/23 08:00 Resp 20 05/13/23 05:08 BP 161/92 H 05/13/23 05:08 Pulse Ox 92 L 05/13/23 05:08 O2 Del Method Room Air 05/13/23 05:08 DS: Data Data Completed and Pending Labs on day of discharge: Labs from last 24 hours 05/13/23 05/13/23 05/12/23 07:20 03:49 21:32 WBC 6.4 RBC 3.91 L Hgb 10.4 L Hct 30.7 L MCV 78.5 L MCH 26.6 L MCHC 33.9 RDW 13.0 Plt Count 151 MPV 11.3 Neut % (Auto) 55.6 Lymph % (Auto) 17.6 L [place] % (Auto) 15.1 H Eos % (Auto) 1.1 Baso % (Auto) 0.2 Neut # (Auto) 3.6 Lymph # (Auto) 1.1 L [place] # (Auto) 1.0 H Eos # (Auto) 0.1 Baso # (Auto) 0.0 Abs Immat Gran (auto) 0.67 H Imm/Tot Granulo (auto) 10.4 H Sodium 139 Potassium 3.0 L Chloride 101 Carbon Dioxide 27.5 Anion Gap 13.5 BUN 7.0 Creatinine 0.88 Est GFR ( Amer) >60 Est GFR (Non-Af Amer) >60 BUN/Creatinine Ratio 8.0 Glucose 182 H Calcium 7.9 L Adenovirus (PCR) C. pneumoniae DNA (PCR) Coronavirus Type OC43 Coronavirus Type HKU1 Coronavirus Type 229E Coronavirus Type NL63 Human Metapneumovir PCR M. pneumoniae (PCR) Parainfluenza PCR Parainfluenza 2 (PCR) Parainfluenza 3 (PCR) Parainfluenza 4 (PCR) RSV (RT-PCR) Entero/Rhino (PCR) SARS-CoV-2 (PCR) Bordetella pertussis (PCR) B parapertussis DNA PCR Influenza Type A (PCR) Influenza Type B (PCR) POC Glucose 167 H 196 H 05/12/23 05/12/23 05/12/23 16:45 14:35 11:21 WBC RBC Hgb Hct MCV MCH MCHC RDW Plt Count MPV Neut % (Auto) Lymph % (Auto) [place] % (Auto) Eos % (Auto) Baso % (Auto) Neut # (Auto) Lymph # (Auto) [place] # (Auto) Eos # (Auto) Baso # (Auto) Abs Immat Gran (auto) Imm/Tot Granulo (auto) Sodium Potassium 3.1 L Chloride Carbon Dioxide Anion Gap BUN Creatinine Est GFR ( Amer) Est GFR (Non-Af Amer) BUN/Creatinine Ratio Glucose Calcium Adenovirus (PCR) C. pneumoniae DNA (PCR) Coronavirus Type OC43 Coronavirus Type HKU1 Coronavirus Type 229E Coronavirus Type NL63 Human Metapneumovir PCR M. pneumoniae (PCR) Parainfluenza PCR Parainfluenza 2 (PCR) Parainfluenza 3 (PCR) Parainfluenza 4 (PCR) RSV (RT-PCR) Entero/Rhino (PCR) SARS-CoV-2 (PCR) Bordetella pertussis (PCR) B parapertussis DNA PCR Influenza Type A (PCR) Influenza Type B (PCR) POC Glucose 242 H 210 H 05/12/23 09:27 WBC RBC Hgb Hct MCV MCH MCHC RDW Plt Count MPV Neut % (Auto) Lymph % (Auto) [place] % (Auto) Eos % (Auto) Baso % (Auto) Neut # (Auto) Lymph # (Auto) [place] # (Auto) Eos # (Auto) Baso # (Auto) Abs Immat Gran (auto) Imm/Tot Granulo (auto) Sodium Potassium Chloride Carbon Dioxide Anion Gap BUN Creatinine Est GFR ( Amer) Est GFR (Non-Af Amer) BUN/Creatinine Ratio Glucose Calcium Adenovirus (PCR) Not detected C. pneumoniae DNA (PCR) Not detected Coronavirus Type OC43 Not detected Coronavirus Type HKU1 Not detected Coronavirus Type 229E Not detected Coronavirus Type NL63 Not detected Human Metapneumovir PCR Not detected M. pneumoniae (PCR) Not detected Parainfluenza PCR Not detected Parainfluenza 2 (PCR) Not detected Parainfluenza 3 (PCR) Not detected Parainfluenza 4 (PCR) Not detected RSV (RT-PCR) Not detected Entero/Rhino (PCR) Not detected SARS-CoV-2 (PCR) Not detected Bordetella pertussis (PCR) Not detected B parapertussis DNA PCR Not detected Influenza Type A (PCR) Not detected Influenza Type B (PCR) Not detected POC Glucose Discharge Plan Discharge Disposition: (FBC OBS) Home, Self-Care Condition: Good Discharge Medications: New potassium chloride [Klor-Con M20] 20 mEq tablet,ER particles/crystals 20 meq PO TID 7 Days Qty: 21 0RF Continued ondansetron HCl 8 mg tablet 8 mg PO Q8H PRN (Reason: nausea and vomiting) oxycodone-acetaminophen 5-325 mg tablet 1 tab PO Q6H PRN (Reason: pain) duloxetine 60 mg capsule,delayed release(DR/EC) 60 mg PO BID quetiapine 25 mg tablet 25 mg PO .hs celecoxib 200 mg capsule 200 mg PO DAILY atorvastatin 20 mg tablet 20 mg PO DAILY citalopram 10 mg tablet 10 mg PO DAILY cyanocobalamin (vitamin B-12) 1,000 mcg tablet 1,000 mcg PO DAILY hydroxyzine pamoate 50 mg capsule 50 mg PO TID PRN (Reason: anxiety) alprazolam 0.25 mg tablet 0.25 mg PO QID PRN (Reason: anxiety) metoclopramide HCl 5 mg tablet 5 mg PO BIDWM trazodone 100 mg tablet 100 mg PO .HS PRN (Reason: insomnia) meclizine 25 mg tablet 25 mg PO Q8H PRN (Reason: dizziness or vertigo) metformin 500 mg tablet extended release 24 hr 1,000 mg PO BID lamotrigine 100 mg tablet 100 mg PO DAILY loratadine 10 mg tablet 10 mg PO DAILY (DME) FreeStyle Nanette 2 Sensor Kit MISCELLANEOUS Jardiance 25 mg tablet 25 mg PO DAILY Rx Instructions: PER RETAIL FILL HX - LAST FILLED 12/15/22 gabapentin 600 mg tablet 600 mg PO TID Rx Instructions: PER RETAIL FILL HX - LAST FILLED 12/15/22 midodrine 10 mg tablet 10 mg PO TID Rx Instructions: do not give last dose of day after 6PM or within 4 hrs of bedtime pantoprazole 40 mg tablet,delayed release (DR/EC) 40 mg PO BID Rx Instructions: PER RETAIL FILL HX - LAST FILLED 12/15/22 quetiapine 200 mg tablet 200 mg PO DAILY Rx Instructions: AT BEDTIME PER RETAIL FILL HX - 12/15/22 insulin glargine [Lantus U-100 Insulin] 100 unit/mL solution 32 unit subcut QPM Activity: increase activity as tolerated Diet: advance to your usual diet Referrals: Physician,Non-Staff, MD [Primary Care Provider] - 1 week Follow Up Appointments: Dr. Nash's office will reach out to patient for follow up, will need CBC and BMP within 1 week to follow up potassium level and blood counts.
[2023-05-13] MEDS: POTASSIUM CHLORIDE IN WATER 10 MEQ/100 ML PIGGYBACK 100 MEQ IV ×2 (11:09→11:38)
[2023-05-13 11:15] LABS: Glucometer 150 mg/dL (74-106)
--- NOTE | 2023-05-13 12:02 | CM.NOTE ---
Rounds made with Dr. Rubin, pt ok for discharge to home today. No discharge needs identified.
[2023-05-13 12:28] LABS: Vancomycin Trough 15.3 ug/mL (5.0-20.0)
[2023-05-13] MEDS: HEPARIN SODIUM (PORCINE) PF LOCK FLUSH 500 UNIT/5 ML SYRINGE IV (14:04)
--- NOTE | 2023-05-16 14:48 | CM.DCFOLLOWU ---
Person spoke with: Sandra How are you feeling? Better How is your pain? No pain Did you understand your discharge instructions? Yes Do you have any questions about your discharge instructions? No Were you given any prescriptions at discharge? Yes Were you able to get your prescriptions filled? Yes Do you understand how to take your medications as ordered? Yes Do you have any questions about your follow up appointment and do you plan to keep your follow up appointment? I have appt scheduled for and 26 of May with oncologist and family doctor. Yes, I plan on going to appt. Is there anything else that you would like to discuss? Not at this time Questions/Comments/Concerns/Other:
== END 2023-05-13 14:51 | disposition home or self-care (01) ==
LOC: ER 05-12 00:04 → MS 05-12 00:54
PROVIDERS: Internal Medicine; Admitting Provider Family Medicine; Emergency Provider Emergency Medicine; Visit Provider Family Medicine
DX: D70.9 Neutropenia, unspecified (principal); R50.81 Fever presenting with conditions classified elsewhere; E11.65 Type 2 diabetes mellitus with hyperglycemia; E87.6 Hypokalemia; E11.43 Type 2 diabetes mellitus with diabetic autonomic (poly)neuropathy; K31.84 Gastroparesis; C50.511 Malignant neoplasm of lower-outer quadrant of right female breast; F31.9 Bipolar disorder, unspecified; E11.40 Type 2 diabetes mellitus with diabetic neuropathy, unspecified; E78.5 Hyperlipidemia, unspecified; K21.9 Gastro-esophageal reflux disease without esophagitis; Z87.01 Personal history of pneumonia (recurrent); Z90.11 Acquired absence of right breast and nipple; Z98.51 Tubal ligation status; Z90.49 Acquired absence of other specified parts of digestive tract; Z79.4 Long term (current) use of insulin; Z79.899 Other long term (current) drug therapy; Z20.822 Contact with and (suspected) exposure to COVID-19
CPT/HCPCS: 0202U; 36415; 36416; 36591; 71045; 80048; 80202; 81001; 82948; 84132; 85025; 85027; 87040; 87635; 87811; 93005; 96361; 96365; 96366; 96367; 96368; 96375; 96376; 97161; 99285; G0378; J3370; J3480; Q3014

== ENCOUNTER 2023-06-04 15:09 | Emergency (ER) | payer OTHER, SELFPAY ==
[2023-06-04] VITALS (31 sets, daily range): BP systolic 61–150; BP diastolic 20–90; PULSE 113–135; RESP 14–42; O2SAT 76–99; BMI 33.3
--- NOTE | 2023-06-04 15:29 | XR_ITS ---
The [address] [address] Patient Name: KATHERIN WEBB MRN: [id number] date: 1965 Sex: F Assigned Patient Location: ER Current Patient Location: ER Accession/Order Number: [id number] Exam Date: 06/04/2023 15:30 Report Date: 06/04/2023 15:52 At the request of: BECKY KENNEDY Procedure: XR chest 1V EXAM: XR chest 1V INDICATION: SOB. COMPARISON: Chest radiograph 05/11/2023. TECHNIQUE: Single frontal view of the chest FINDINGS: Right mainstem bronchus intubation. Left subclavian port catheter tip in the lower SVC. Normal cardiomediastinal contours. Clear lungs. No pleural effusion or pneumothorax. No acute osseous abnormality. XR/XR chest 1V IMPRESSION: 1. Right mainstem bronchus intubation. Ordering service aware of findings as a repeat chest radiograph after adequate repositioning the chest tube was performed immediately after this exam. 2. No acute cardiac pulmonary process. Electronically authenticated by: YRN VILLA Date: 06/04/2023 15:52
--- NOTE | 2023-06-04 15:29 | ECG_ITS ---
The [facility] Test Date: 2023-06-04 Pat Name: KATHERIN WEBB Department: Room: - Gender: Female Emergency Medical Service Manager: : 1965 Requested By: Order Number: [id number] Reading MD: YOANA MAYERS Measurements Intervals [place] Rate: 129 P: 235 AR: 184 QRS: -60 QRSD: 82 T: 56 QT: 318 QTc: 394 Interpretive Statements 1220 Rapid atrial rhythm 3114 Cannot rule out anterior myocardial infarction, age undetermined 3614 Cannot rule out inferior myocardial infarction, age undetermined 7200 Abnormal left axis deviation 9150 abnormal ECG t Electronically Signed On 06-05-2023 17:52:34 EST by YOANA MAYERS
--- NOTE | 2023-06-04 15:30 | XR_ITS ---
The [address] [address] Patient Name: KATHERIN WEBB MRN: [id number] date: 1965 Sex: F Assigned Patient Location: ER Current Patient Location: ER Accession/Order Number: [id number] Exam Date: 06/04/2023 15:35 Report Date: 06/04/2023 15:54 At the request of: BECKY KENNEDY Procedure: XR chest 1V EXAM: XR chest 1V INDICATION: ET tube placement. COMPARISON: Same day chest radiograph. TECHNIQUE: Single frontal view of the chest FINDINGS: Endotracheal tube tip 2.6 cm above the tera. Left-sided subclavian port catheter tip in the lower SVC. Normal cardiomediastinal contours. No acute infiltrative process. No pleural effusion or pneumothorax. No acute osseous abnormality. XR/XR chest 1V IMPRESSION: 1. Interval retraction of the endotracheal tube now in adequate position. 2. No acute cardiopulmonary process. Electronically authenticated by: YRN VILLA Date: 06/04/2023 15:54
[2023-06-04 15:38] LABS: Hematocrit 37.2 % (36.0-48.0); Hemoglobin 12.3 g/dL (12.0-16.0); Mean Corpuscular HGB Conc 33.1 g/dL (29.9-35.2); Mean Corpuscular Hemoglobin 25.9 pg (26.7-34.0); Mean Corpuscular Volume 78.3 fL (81.0-99.0); Platelet Count 244 10^3/uL (150-450); Red Blood Count 4.75 10^6/uL (4.20-5.40); Red Cell Distribution Width 14.6 % (11.0-15.0); White Blood Count 27.7 10^3/uL (4.0-11.0)
[2023-06-04 15:45] LABS: Acetone NEGATIVE (NEGATIVE)
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
[2023-06-04 15:53] LABS: Anion Gap 31.7; BUN Creatinine Ratio 13.6; Calcium 10.6 mg/dL (8.5-10.1); Carbon Dioxide 25.1 mmol/L (21.0-32.0); Chloride 87 mmol/L (98-107); Estimated GFR (African America 15 (>=60); Estimated GFR (Non-African Ame 12 (>=60); Ethanol <3 mg/dL; Glucose 467 mg/dL (74-106); Potassium 3.8 mmol/L (3.5-5.1); Sodium 140 mmol/L (136-145)
[2023-06-04 15:55] LABS: Troponin I High Sensitivity 176.6 pg/mL (4.0-51.3)
[2023-06-04 16:00] LABS: Band Neutrophils Absolute 0.8 10^3/uL (0.0-0.3); Lymphocytes Absolute Manual 4.98 10^3/uL (1.20-3.80); Metamyelocytes Absolute Manual 0.55; Monocytes Absolute Manual 3.04 10^3/uL (0.30-0.80); Segmented Neut Absolute Manual 18.28 10^3/uL (1.4-6.5)
[2023-06-04 16:01] LABS: Nucleated Red Blood Cells 5
[2023-06-04 16:03] LABS: Polychromasia 1+
[2023-06-04 16:06] LABS: Bilirubin Urine NEGATIVE (NEGATIVE); Blood Urine LARGE (NEGATIVE); Clarity Urine CLEAR (CLEAR); Color Urine YELLOW (YELLOW); Glucose Urine UA >=1000 mg/dL (NEGATIVE); Ketones Urine 15 mg/dL (NEGATIVE); Leukocyte Esterase Urine NEGATIVE (NEGATIVE); Nitrite Urine NEGATIVE (NEGATIVE); Protein Urine 30 mg/dL (NEG/TRACE); Specific Gravity Urine >=1.030 (1.005-1.025); Urobilinogen Urine 0.2 EU/dL (0.2-1.0); pH Urine 5.5 (5.0-9.0)
--- NOTE | 2023-06-04 16:08 | ED_ITS ---
HPI - General Adult General Chief complaint: Shortness of Breath/Dyspnea Stated complaint: UNRESPONSIVE Time Seen by Provider: 06/04/23 15:27 Source: family Mode of arrival: ambulance Limitations: altered mental status History of Present Illness HPI narrative: 57-year-old female who has a known history of breast cancer presents to the emergency department for altered mental status. She was found on the floor of h er residence and had not been checked on it four days. She was noted to have abrasions on her knees and elsewhere. She was transported here by paramedics. She is unable to provide us any history. She is known to have missed her last chemotherapy appointment. No further history is initially obtainable. Related Data Home Medications Medication Instructions Recorded Confirmed alprazolam 0.25 mg tablet 0.25 mg PO QID PRN anxiety 01/05/23 05/11/23 atorvastatin 20 mg tablet 20 mg PO DAILY 01/05/23 05/11/23 celecoxib 200 mg capsule 200 mg PO DAILY 01/05/23 05/11/23 citalopram 10 mg tablet 10 mg PO DAILY 01/05/23 05/11/23 cyanocobalamin (vitamin B-12) 1,000 mcg PO DAILY 01/05/23 05/11/23 1,000 mcg tablet empagliflozin 25 mg tablet 25 mg PO DAILY 01/05/23 05/11/23 (Jardiance) flash glucose sensor ([facility] 01/05/23 05/11/23 Nanette 2 Sensor kit) gabapentin 600 mg tablet 600 mg PO TID 01/05/23 05/11/23 hydroxyzine pamoate 50 mg capsule 50 mg PO TID PRN anxiety 01/05/23 05/11/23 insulin glargine 100 unit/mL 32 unit subcut QPM 01/05/23 05/11/23 subcutaneous solution (Lantus U-100 Insulin) lamotrigine 100 mg tablet 100 mg PO DAILY 01/05/23 05/11/23 loratadine 10 mg tablet 10 mg PO DAILY 01/05/23 05/11/23 meclizine 25 mg tablet 25 mg PO Q8H PRN dizziness or 01/05/23 05/11/23 vertigo metformin 500 mg tablet,extended 1,000 mg PO BID 01/05/23 05/11/23 release 24 hr metoclopramide HCl 5 mg tablet 5 mg PO BIDWM 01/05/23 05/11/23 midodrine 10 mg tablet 10 mg PO TID 01/05/23 05/12/23 pantoprazole 40 mg tablet,delayed 40 mg PO BID 01/05/23 05/11/23 release quetiapine 200 mg tablet 200 mg PO DAILY 01/05/23 05/11/23 quetiapine 25 mg tablet 25 mg PO .hs 01/05/23 05/11/23 trazodone 100 mg tablet 100 mg PO .HS PRN insomnia 01/05/23 05/11/23 duloxetine 60 mg capsule,delayed 60 mg PO BID 05/11/23 05/12/23 release ondansetron HCl 8 mg tablet 8 mg PO Q8H PRN nausea and vomiting 05/11/23 05/12/23 oxycodone-acetaminophen 5 mg-325 1 tab PO Q6H PRN pain 05/11/23 05/12/23 mg tablet Previous Rx's Medication Instructions Recorded potassium chloride 20 mEq 20 meq PO TID 7 days #21 tabs 05/13/23 tablet,extended release(part/cryst) (Klor-Con M) Allergies Allergy/AdvReac Type Severity Reaction Status Date / Time lithium Allergy Verified 05/11/23 21:18 metformin Allergy Verified 05/11/23 21:18 ziprasidone [From Geodon] Allergy Verified 05/11/23 21:18 Review of Systems ROS Narrative not obtainable, nonverbal [facility] Medical History (Updated 06/04/23 @ 17:57 by Yahir Manjarrez MD) Bipolar disease, chronic ?F31.9 - Bipolar disorder, unspecified (ICD-10) Hyperlipidemia ?E78.5 - Hyperlipidemia, unspecified (ICD-10) Gastroparesis ?K31.84 - Gastroparesis (ICD-10) Heart disease ?I51.9 - Heart disease, unspecified (ICD-10) Diabetes ?E11.9 - Type 2 diabetes mellitus without complications (ICD-10) Pneumonia ?J18.9 - Pneumonia, unspecified organism (ICD-10) Breast cancer ?C50.919 - Malignant neoplasm of unspecified site of unspecified female breast (ICD-10) Surgical History H/O right mastectomy ?Z90.11 - Acquired absence of right breast and nipple (ICD-10) History of cholecystectomy ?Z90.49 - Acquired absence of other specified parts of digestive tract (ICD- 10) H/O tubal ligation ?Z98.51 - Tubal ligation status (ICD-10) Family History Father Family history of CHF (congestive heart failure) Family history of cancer Family history of hypertension Family history of myocardial infarction Family history of stroke Brother Family history of COPD (chronic obstructive pulmonary disease) Family history of hypertension Grandmother Family history of diabetes mellitus Grandfather Family history of diabetes mellitus Mother Family history of hypertension Social History Within the past year, how often did you have a drink containing alcohol: never Score interpretation: A score less than 3 is consistent with normal alcohol consumption. Smoking status: Current every day smoker Non-prescribed substance use: denies use Previous occupational history: Disability Highest level of school completed/degree received: high school graduate Are you now , , , , never or living with a partner: In a typical week, how many times do you talk on the telephone with family, friends, or neighbors: 3 or more times per week How often do you get together with friends or relatives: 3 or more times per week Little interest or pleasure in doing things: several days Feeling down, depressed, or hopeless: more than half the days Feel stressed/tense/nervous/anxious/difficulty sleeping: to some extent Do you think of yourself as: straight/heterosexual Gender Identity: female Exam Narrative Exam Narrative: Nurses note and vital signs reviewed and patient is not hypoxic. General: The patient appears in mild respiratory distress. She is not speaking or following commands. Skin: Warm, dry, pallor noted. There is no rash noted. numerous abrasions are present including both knees. Head: Normocephalic, atraumatic Eye: Normal conjunctiva, no drainage Ears, Nose, Mouth, and Throat: oral mucosa is dry, Nares patent. Cardiovascular: Regular Rate and Rhythm, tachycardic Respiratory: Patient is in mild respiratory distress. GI: no apparent tenderness to palpation, no masses appreciated. No rebound, guarding, or rigidity noted. Musculoskeletal: no deformity. No joint swelling. Neurological: nonverbal, doesn't follow commands. Psychiatric: not able to be tested Constitutional Vital Signs, click to edit/add: Last Vital Signs Pulse 135 H 06/04/23 15:10 Resp 25 H 06/04/23 15:45 BP 62/20 L 06/04/23 15:10 Pulse Ox 99 06/04/23 17:10 O2 Del Method Room Air 06/04/23 15:24 FiO2 100 06/04/23 17:10 Course Vital Signs Vital signs: Vital Signs Pulse Rate 135 H 06/04/23 15:10 Respiratory Rate 34 H 06/04/23 15:10 Blood Pressure 62/20 L 06/04/23 15:10 Pulse Oximetry 84 L 06/04/23 15:10 Oxygen Delivery Method Nonrebreather 06/04/23 15:10 Pulse Rate 135 H 06/04/23 15:10 Respiratory Rate 25 H 06/04/23 15:45 Blood Pressure 62/20 L 06/04/23 15:10 Pulse Oximetry 99 06/04/23 17:10 Oxygen Delivery Method Room Air 06/04/23 15:24 Fraction of Inspired Oxygen 100 06/04/23 17:10 Medical Decision Making MDM Narrative Medical decision making narrative: The patient presented with respiratory failure and I intubated her shortly after arrival. The following procedure was performed by me. She was given IV etomidate and was orotracheally intubated on 1st attempt with direct laryngoscopy and visualization of the 7.0 ET tube passing between the cords. Initially she had breath sounds on the right but none on the left and eventually the tube was pulled back and found to be in good placement. Appropriate change on the capnometer. The patient also has acute kidney injury with a creatinine of 3.8. Her baseline is normal. She was given IV fluids, 4 L, and her blood pressure came up. Additionally her WBC is twenty-seven thousand and cultures were obtained. She also has a fever and she was given IV Zosyn and vancomycin. Lactic acid is pending. The following procedure was performed by me. Right femoral vein triple-lumen catheter was placed. The area was prepped with Betadine ?3 and draped sterilely. The femoral vein was then entered with needle and using usual self injure technique the triple lumen catheter was placed with good blood return and flush ?3. No consultations. Minimal blood loss. Differential Diagnosis Differential Diagnosis: sepsis, pneumonia, Covid, influenza, acute kidney injury, bacteremia Lab Data Lab results reviewed: Yes I reviewed the patient's lab results Labs: Lab Results 06/04/23 06/04/23 06/04/23 Range/Units 15:10 15:35 15:40 WBC 27.7 H (4.0-11.0) 10^3/uL RBC 4.75 (4.20-5.40) 10^6/uL Hgb 12.3 (12.0-16.0) g/dL Hct 37.2 (36.0-48.0) % MCV 78.3 L (81.0-99.0) fL MCH 25.9 L (26.7-34.0) pg MCHC 33.1 (29.9-35.2) g/dL RDW 14.6 (11.0-15.0) % Plt Count 244 (150-450) 10^3/uL MPV 12.0 (9.5-13.5) fL Seg Neuts % (Manual) 66.0 Band Neutrophils % 3.0 (0-5) % Lymphocytes % (Manual) 18.0 L (20.5-60.0) % Monocytes % (Manual) 11.0 (1.7-12.0) % Eosinophils % (Manual) 0.0 L (0.9-7.0) % Basophils % (Manual) 0.0 L (0.2-2.0) % Metamyelocytes % 2.0 Neutrophils # (Manual) 18.28 H (1.4-6.5) 10^3/uL Band Neutrophils # 0.8 H (0.0-0.3) 10^3/uL Lymphocytes # (Manual) 4.98 H (1.20-3.80) 10^3/uL Monocytes # (Manual) 3.04 H (0.30-0.80) 10^3/uL Eosinophils # (Manual) 0.00 (0.00-0.70) 10^3/uL Basophils # (Manual) 0.00 (0.00-0.10) 10^3/uL Metamyelocytes # 0.55 Nucleated RBCs 5 Polychromasia 1+ Puncture Site ABG pH (7.350-7.450) ABG pCO2 (35.0-45.0) mmHg ABG pO2 (80.0-100.0) mmHg ABG HCO3 (22.0-26.0) mmol/L ABG O2 Saturation % ABG Base Excess (-2.0-2.0) mmol/L Darius Test (POSITIVE) Vent Mode FiO2 % Tidal Volume Sodium 140 (136-145) mmol/L Potassium 3.8 (3.5-5.1) mmol/L Chloride 87 L (98-107) mmol/L Carbon Dioxide 25.1 (21.0-32.0) mmol/L Anion Gap 31.7 BUN 52.0 H (7.0-18.0) mg/dL Creatinine 3.82 H (0.55-1.02) mg/dL Est GFR ( Amer) 15 L (>=60) Est GFR (Non-Af Amer) 12 L (>=60) BUN/Creatinine Ratio 13.6 Glucose 467 H (74-106) mg/dL Calcium 10.6 H (8.5-10.1) mg/dL Total Creatine Kinase 1327 H* (26-192) U/L Troponin I High Sens 176.6 H* (4.0-51.3) pg/mL Urine Color Yellow (YELLOW) Urine Clarity Clear (CLEAR) Urine pH 5.5 (5.0-9.0) Ur Specific Nicolaus >=1.030 A (1.005-1.025) Urine Protein 30 A (NEG/TRACE) mg/dL Urine Glucose (UA) >=1000 A (NEGATIVE) mg/dL Urine Ketones 15 A (NEGATIVE) mg/dL Urine Occult Blood Large A (NEGATIVE) Urine Nitrite Negative (NEGATIVE) Urine Bilirubin Negative (NEGATIVE) Urine Urobilinogen 0.2 (0.2-1.0) EU/dL Ur Leukocyte Esterase Negative (NEGATIVE) Urine RBC 2-5 A (0-2) #/HPF Urine WBC 0-2 A (NONE SEEN) #/HPF Ur Squamous Epith Cells Rare (NONE/RARE) #/LPF Urine Crystals None seen (None Seen) #/HPF Urine Bacteria Trace A (NONE SEEN) #/HPF Urine Casts Seen A (NONE SEEN) #/LPF Hyaline Casts Moderate Urine Mucus None seen (NONE SEEN) Ethanol Quant <3 mg/dL Acetone, Qual Negative (NEGATIVE) SARS-CoV-2 (PCR) Negative (NEGATIVE) Influenza Type A Ag Negative Influenza Type B Ag Negative 06/04/23 Range/Units 16:56 WBC (4.0-11.0) 10^3/uL RBC (4.20-5.40) 10^6/uL Hgb (12.0-16.0) g/dL Hct (36.0-48.0) % MCV (81.0-99.0) fL MCH (26.7-34.0) pg MCHC (29.9-35.2) g/dL RDW (11.0-15.0) % Plt Count (150-450) 10^3/uL MPV (9.5-13.5) fL Seg Neuts % (Manual) Band Neutrophils % (0-5) % Lymphocytes % (Manual) (20.5-60.0) % Monocytes % (Manual) (1.7-12.0) % Eosinophils % (Manual) (0.9-7.0) % Basophils % (Manual) (0.2-2.0) % Metamyelocytes % Neutrophils # (Manual) (1.4-6.5) 10^3/uL Band Neutrophils # (0.0-0.3) 10^3/uL Lymphocytes # (Manual) (1.20-3.80) 10^3/uL Monocytes # (Manual) (0.30-0.80) 10^3/uL Eosinophils # (Manual) (0.00-0.70) 10^3/uL Basophils # (Manual) (0.00-0.10) 10^3/uL Metamyelocytes # Nucleated RBCs Polychromasia Puncture Site R radial ABG pH 7.518 H* (7.350-7.450) ABG pCO2 34.5 L (35.0-45.0) mmHg ABG pO2 457.0 H (80.0-100.0) mmHg ABG HCO3 28.1 H (22.0-26.0) mmol/L ABG O2 Saturation >100.0 % ABG Base Excess 5.2 H (-2.0-2.0) mmol/L Darius Test Positive (POSITIVE) Vent Mode A/c FiO2 100 % Tidal Volume 450 Sodium (136-145) mmol/L Potassium (3.5-5.1) mmol/L Chloride (98-107) mmol/L Carbon Dioxide (21.0-32.0) mmol/L Anion Gap BUN (7.0-18.0) mg/dL Creatinine (0.55-1.02) mg/dL Est GFR ( Amer) (>=60) Est GFR (Non-Af Amer) (>=60) BUN/Creatinine Ratio Glucose (74-106) mg/dL Calcium (8.5-10.1) mg/dL Total Creatine Kinase (26-192) U/L Troponin I High Sens (4.0-51.3) pg/mL Urine Color (YELLOW) Urine Clarity (CLEAR) Urine pH (5.0-9.0) Ur Specific Nicolaus (1.005-1.025) Urine Protein (NEG/TRACE) mg/dL Urine Glucose (UA) (NEGATIVE) mg/dL Urine Ketones (NEGATIVE) mg/dL Urine Occult Blood (NEGATIVE) Urine Nitrite (NEGATIVE) Urine Bilirubin (NEGATIVE) Urine Urobilinogen (0.2-1.0) EU/dL Ur Leukocyte Esterase (NEGATIVE) Urine RBC (0-2) #/HPF Urine WBC (NONE SEEN) #/HPF Ur Squamous Epith Cells (NONE/RARE) #/LPF Urine Crystals (None Seen) #/HPF Urine Bacteria (NONE SEEN) #/HPF Urine Casts (NONE SEEN) #/LPF Hyaline Casts Urine Mucus (NONE SEEN) Ethanol Quant mg/dL Acetone, Qual (NEGATIVE) SARS-CoV-2 (PCR) (NEGATIVE) Influenza Type A Ag Influenza Type B Ag Imaging Data Chest x-ray: Radiologist's impression: Procedure: XR chest 1V EXAM: XR chest 1V INDICATION: SOB. COMPARISON: Chest radiograph 05/11/2023. TECHNIQUE: Single frontal view of the chest FINDINGS: Right mainstem bronchus intubation. Left subclavian port catheter tip in the lower SVC. Normal cardiomediastinal contours. Clear lungs. No pleural effusion or pneumothorax. No acute osseous abnormality. IMPRESSION: 1. Right mainstem bronchus intubation. Ordering service aware of findings as a repeat chest radiograph after adequate repositioning the chest tube was performed immediately after this exam. 2. No acute cardiac pulmonary process. Electronically authenticated by: YRN VILLA Date: 06/04/2023 15:52 Critical Care Time Critical Care Time Critical Care Time: Yes Total Critical Care Time: 120 Attestation: Due to the high probability of sudden and clinically significant deterioration in the patient's condition he/she required the highest level of my preparedness to intervene urgently I provided critical care time including documentation time, medication orders and management, reevaluation, vital sign assessment, ordering and reviewing of lab tests, ordering and reviewing of x-ray studies, and admission orders. Aggregate critical care time is 120 minutes including only time during which I was engaged in work directly related to his/her care and did not include time spent treating other patients simultaneously. Discharge Plan Discharge Chief Complaint: Shortness of Breath/Dyspnea Clinical Impression: Acute kidney injury, Fever, Respiratory failure, Rhabdomyolysis, Sepsis Patient Disposition: [facility] Time of Disposition Decision: 17:50 Discharge Location: [facility] Condition: Good Mode of Transportation: EMS
[2023-06-04] MEDS: 0.9 % SODIUM CHLORIDE 1,000 ML 1000 ML IV ×3 (16:12→18:06)
[2023-06-04] MEDS: DIAZEPAM 5 MG/ML - 2 ML INJ SYRINGE IV ×2 (16:12→18:05)
[2023-06-04] MEDS: PIPERACILLIN SODIUM/TAZOBACTAM 4.5 GM in 0.9 % SODIUM CHLORIDE 50 ML IV (16:13)
[2023-06-04 16:19] LABS: Influenza Virus A Antigen Negative; Influenza Virus B Antigen Negative; Internal Control Within Normal Limits; SARS-CoV-2 Ag NEGATIVE (NEGATIVE)
[2023-06-04 16:35] LABS: Bacteria Urine TRACE #/HPF (NONE SEEN); Mucus Urine NONE SEEN (NONE SEEN); WBC Urine 0-2 #/HPF (NONE SEEN)
[2023-06-04 16:36] LABS: Cast Seen? SEEN #/LPF (NONE SEEN); Squamous Epithelial Cell Urine RARE #/LPF (NONE/RARE)
[2023-06-04 16:37] LABS: Crystals Seen? None Seen #/HPF (None Seen); Hyaline Casts Urine MODERATE
[2023-06-04 16:38] LABS: Creatine Kinase 1327 U/L (26-192)
--- NOTE | 2023-06-04 16:51 | PC.NURSE ---
1650 pt coughing up dark emesis pt turned to side dr carty aware pt given 5mg of valium pt og placed due to emesis
--- NOTE | 2023-06-04 17:03 | PC.NURSE ---
450cc of dark emesis out
[2023-06-04 17:06] LABS: ABG PCO2 34.5 mmHg (35.0-45.0); Allen Test POSITIVE (POSITIVE); Base Excess ABG 5.2 mmol/L (-2.0-2.0); HCO3 ABG 28.1 mmol/L (22.0-26.0); Oxygen Saturation ABG >100.0 %
[2023-06-04 17:07] LABS: Fractionated Inspired Oxygen 100 %; O2 Mode VENT; Puncture Site R RADIAL; Tidal Volume 450; Vent Mode A/C
[2023-06-04 17:09] LABS: pH ABG 7.518 (7.350-7.450)
--- NOTE | 2023-06-04 17:22 | RESP.RT ---
Decreased FiO2 to 50%
--- NOTE | 2023-06-04 17:29 | PC.NURSE ---
1717 etomodate 20mg iv given due to patient combative status; central line placed per dr carty good blood return noted sterile technique followed per dr carty verbal order given for propofol supervisor cleaning and annealing notified
--- NOTE | 2023-06-04 17:57 | PC.NURSE ---
1800 3rd litter of NS completed- NS at 200ml /hr per verbal order dr carty late entry 1750- propofol drip intitiated due to patient fighting tube soft restraints in use multiple staff members in this nurse remianed in room throughout care of this patient from time of arrival and disposition of care dr carty in to notify this nurse that room assignement received and transport to be here in 10-15 min
--- NOTE | 2023-06-04 18:31 | PC.NURSE ---
report given to superior staff
[2023-06-04 18:40] LABS: Lactate/Lactic Acid 20.1 mmol/L (0.4-2.0)
--- NOTE | 2023-06-05 07:49 | PC.NURSE ---
late entry 1914- pt left facility with propofol infusing at 50mcg/kg/min pt also had normal saline at 200ml/hr infusing to rt femoral central line
[2023-06-05 14:47] LABS: SARS-CoV-2 NAA NOT DETECTED (NOT DETECTE)
== END 2023-06-04 19:15 | disposition short-term general hospital (02) ==
PROVIDERS: Emergency Provider Emergency Medicine
DX: A41.9 Sepsis, unspecified organism (principal); N17.9 Acute kidney failure, unspecified; R50.9 Fever, unspecified; M62.82 Rhabdomyolysis; J96.90 Respiratory failure, unspecified, unspecified whether with hypoxia or hypercapnia; Z20.822 Contact with and (suspected) exposure to COVID-19; C50.919 Malignant neoplasm of unspecified site of unspecified female breast; F31.9 Bipolar disorder, unspecified; E78.5 Hyperlipidemia, unspecified; K31.84 Gastroparesis; I51.9 Heart disease, unspecified; F17.210 Nicotine dependence, cigarettes, uncomplicated; Z90.11 Acquired absence of right breast and nipple; Z90.49 Acquired absence of other specified parts of digestive tract; Z98.51 Tubal ligation status; Z79.899 Other long term (current) drug therapy; Z79.4 Long term (current) use of insulin; Z87.01 Personal history of pneumonia (recurrent)
CPT/HCPCS: 31500; 36415; 36556; 36591; 36600; 51702; 71045; 80048; 80320; 81001; 82009; 82550; 82805; 83605; 84484; 85027; 87040; 87635; 87804; 87811; 93005; 94002; 96361; 96374; 96375; 96376; 99285; J3370